=== PATIENT | male | born 1965 ===

== ENCOUNTER 2019-12-11 10:18 | Outpatient (REF) | payer OTHER, SELFPAY | END 2019-12-11 10:19 | disposition home or self-care (01) | LOC: HO.LAB 10:18 | PROVIDERS: Visit Provider Physician Assistant | DX: Z13.89 Encounter for screening for other disorder (principal) ==

== ENCOUNTER 2019-12-14 14:26 | Outpatient (REF) | payer OTHER, SELFPAY | END 2019-12-14 14:27 | disposition home or self-care (01) | LOC: HO.LAB 14:26 | PROVIDERS: Visit Provider Orthopaedic Surgery | DX: Z13.89 Encounter for screening for other disorder (principal) ==

== ENCOUNTER 2019-12-22 05:55 | Inpatient (IN) | payer OTHER, SELFPAY ==
[2019-11-18 10:18] VITALS: BMI 30.7
--- NOTE | 2019-11-18 13:20 | P.CONAN_ITS ---
HPI - Anesthesia Eval Consult details Narrative: Resched to 12/15/19 54yo M for R TKA PCP cleared [facility] Past Medical History Medical History Hx MRSA infection Hx of concussion Hx of hepatitis C Hx of low back pain Hx of migraine headaches Hypertension Osteoarthritis Functional capacity: uses cane/walker Family History Family history of problems with anesthesia: No Surgical History Surgical History H/O arthroscopy of left knee History of Problems with Anesthesia: No Social History Social History Smoking Status: Never smoker Second Hand Smoke Exposure: No Substance Use Type: Former Substance User Narrative Narrative: No recent illness. >4 mets with PT Meds Allergies Allergy/AdvReac Type Severity Reaction Status Date / Time bee pollen [bee stings] Allergy Hives Verified 12/11/19 10:43 Home Medications Medication Instructions Recorded Confirmed Type lisinopril-hydrochlorothiazide 1 tab PO DAILY 11/18/19 11/18/19 History Exam Exam Date and Time: November 18, 2019 1320 Height,Weight and Vital Signs: Pulse Resp BP Pulse Ox 70 16 159/98 H ywkgave=451/97 98 11/18/19 14:04 11/18/19 14:04 11/18/19 14:04 11/18/19 14:04 Height 5 ft 5 in Weight 83.915 kg Pertinent Lab Results Pertinent Lab Results: Laboratory Tests 11/10/19 11/10/19 11:56 11:56 WBC 3.7 L Hgb 14.4 Hct 42.2 Plt Count 244 Sodium 139 Potassium 5.1 D Chloride 104 BUN 19 H Creatinine 0.91 Narrative Narrative: EKG 10/2019: NSR@78, nonspec T wave abn, QTc@462 BP elevated day of PAT. Readings provided tomlatient and he will discuss with PCP ar clearance appt. Airway Mallampati Class: II TM Dist: >3cm Neck ROM: Full Adult Head Mouth w/Numbe Teeth: 1. Chipped Loose/Missing/Broken Teeth: Yes (Chipped) Heart: RRR Lungs: CTAB Assessment and Plan Assessment Anesthesia Assessment: Anesthesia Plan Discussed (Herniated L4,L5. Discussed GA as back up. )
[2019-11-18 14:04] VITALS: BP 159/98; PULSE 70; RESP 16; O2SAT 98; BMI 33.3
[2019-11-19 16:48] LABS: MRSA Nasal PCR NEGATIVE (Negative); SA Nasal PCR NEGATIVE (Negative)
--- NOTE | 2019-12-15 07:28 | PC.NURSE ---
PTS CALLED PT SICK N/V/D DIZZINESS CHILLS OR AND SURGEON AWARE
--- NOTE | 2019-12-21 12:16 | P.CONAN_ITS ---
Documented by User: Nenita Gonsalez 12/21/19 12:19 HPI - Anesthesia Eval Consult details Narrative: Resched from 12/15/19 d/t pt illness 54yo M for R TKA PCP cleared [facility] Past Medical History Medical History Hx MRSA infection Hx of concussion Hx of hepatitis C Hx of low back pain Hx of migraine headaches Hypertension Osteoarthritis Functional capacity: uses cane/walker Surgical History Surgical History H/O arthroscopy of left knee Social History Social History Are you a primary career development counselor to a significant other at home: No Do you presently have visiting nurse or other home services: No Smoking Status: Never smoker Second Hand Smoke Exposure: No Use of substances other than those prescribed or required for medical reasons: No Substance Use Type: Former Substance User Substance Use Type Other:: LAST USED 07/2018 Have you been hit, kicked, punched, or otherwise hurt by someone within the past year? If so, by whom?: No Advance Directives: No Advance Directives Information Provided: No Advance Directives on File: No Recently lost weight without trying: No Meds Allergies Allergy/AdvReac Type Severity Reaction Status Date / Time bee pollen [bee stings] Allergy Hives Verified 12/11/19 10:43 Home Medications Medication Instructions Recorded Confirmed Type lisinopril-hydrochlorothiazide 1 tab PO DAILY 11/18/19 11/18/19 History Exam Exam Date and Time: December 21, 2019 1216 Height,Weight and Vital Signs: Height 5 ft 5 in Weight 90.718 kg Last Vital Signs Pulse 70 11/18/19 14:04 Resp 16 11/18/19 14:04 BP 159/98 H 11/18/19 14:04 Pulse Ox 98 11/18/19 14:04 Pertinent Lab Results Pertinent Lab Results: Laboratory Tests 11/18/19 12/14/19 12:16 14:45 Nasal Screen MRSA (PCR) NEGATIVE Nasal S. aureus Screen NEGATIVE Nasal MRSA/S.aureus Interp SEE NOTE Blood Type A Positive Antibody Screen NEGATIVE Laboratory Tests 11/10/19 11/10/19 11:56 11:56 WBC 3.7 L Hgb 14.4 Hct 42.2 Plt Count 244 Sodium 139 Potassium 5.1 D Chloride 104 BUN 19 H Creatinine 0.91 Narrative Narrative: Narrative: EKG 10/2019: NSR@78, nonspec T wave abn, QTc@462 BP elevated day of PAT. Readings provided to patient and he will discuss with PCP at clearance appt. Airway Mallampati Class: II TM Dist: >3cm Neck ROM: Full Loose/Missing/Broken Teeth: Yes (Chipped) Heart: RRR Lungs: CTAB Assessment and Plan Assessment Anesthesia Assessment: Anesthesia Plan Discussed (Herniated L4,L5. Discussed GA as back up. ) and PAT Visit Documented by User: Casey Chavez MD 12/22/19 09:45 [facility] Past Medical History Medical History Hx MRSA infection Hx of concussion Hx of hepatitis C Hx of low back pain Hx of migraine headaches Hypertension Osteoarthritis Surgical History Surgical History H/O arthroscopy of left knee Social History Social History Are you a primary career development counselor to a significant other at home: No Do you presently have visiting nurse or other home services: No Smoking Status: Never smoker Second Hand Smoke Exposure: No Use of substances other than those prescribed or required for medical reasons: No Substance Use Type: Former Substance User Substance Use Type Other:: LAST USED 07/2018 Have you been hit, kicked, punched, or otherwise hurt by someone within the past year? If so, by whom?: No Advance Directives: No Advance Directives Information Provided: No Advance Directives on File: No Recently lost weight without trying: No Meds Allergies Allergy/AdvReac Type Severity Reaction Status Date / Time bee pollen [bee stings] Allergy Hives Verified 12/11/19 10:43 Home Medications Medication Instructions Recorded Confirmed Type lisinopril-hydrochlorothiazide 1 tab PO DAILY 11/18/19 11/18/19 History Exam Airway Mallampati Class: II TM Dist: >3cm Neck ROM: Full (Missing a couple) Heart: RRR Lungs: CTA BL Assessment and Plan Assessment Anesthesia Assessment: Anesthesia Plan Discussed and Chart Reviewed Final Anesthetic Review NPO: Yes ASA Class: II Final Preanesthetic Review: Meds/Allgs Chart Reviewed and Consent Obtained/Reviewed Patient Risk: Intermediate Procedure Risk: Intermediate Anesthetic Plan Anesthetic Plan: Spinal Disposition: Standard PACU
[2019-12-22] VITALS (18 sets, daily range): BP systolic 144–174; BP diastolic 86–99; PULSE 70–92; RESP 16–20; TEMP 36.1–37.2; O2SAT 95–100
--- NOTE | 2019-12-22 | XR_ITS ---
EXAMINATION: XR KNEE, RIGHT CLINICAL INFORMATION: Status post right total knee arthroplasty. COMPARISON: 07/03/2019 TECHNIQUE: AP and lateral views of the right knee. FINDINGS: Expected postoperative changes status post right total knee arthroplasty with patellar resurfacing seen including a joint effusion, soft tissue gas, and skin neeraj. Hardware is well seated. No evidence of acute complication. XR/XR knee RT 2V IMPRESSION: Expected postoperative appearance status post right total knee arthroplasty.
[2019-12-22 06:43] LABS: COVID-19 Test Negative (Negative)
[2019-12-22] MEDS: Gabapentin 600 MG TABLET PO (08:00)
[2019-12-22] MEDS: Lactated Ringers 1,000 ML 100 ML IVCONT (08:14)
--- NOTE | 2019-12-22 09:26 | MHC.SHP ---
Pre-Procedural Eval Section A The patient is an INPATIENT: No Changes since office visit: Yes Patient answered all questions; No Cold of Flu in the past 2 weeks, No New Medical Problems and No Changes in Medication The History & Physical has been completed within 30 days and I have reviewed it.: Yes Section B Chief Complaint: orthopedic surgery TKA Allergies: Allergies Allergy/AdvReac Type Severity Reaction Status Date / Time bee pollen [bee stings] Allergy Hives Verified 12/11/19 10:43 Plan Patient has been examined and remains a candidate for the planned procedure
--- NOTE | 2019-12-22 09:40 | PC.NURSE ---
Pt was rescheduled from last week. Anesthesia consent dated 11/18/19. Pt medicated with versed for nerve block by Dr. Chavez. global supply chain director Manpreet informed of above. Pt ok to sign new consent dated today as he previously consented for planned anesthesia procedure.
--- NOTE | 2019-12-22 11:36 | PM.OP ---
Brief Operative Note Date of procedure: 12/22/19 Pre-op diagnosis: right knee OA Post-op diagnosis: same Procedure: right TKA Implants: allyssa triathalon 04/14/09/32a Surgeon: Ulises Pathak MD Anesthesia: GETA, regional and local General Practitioner: Michelle Moyer Estimated blood loss (mL): 150 Tourniquet time (min): 45 IV fluids (mL): 1,000 Pathology: other Condition: stable Disposition: PACU
[2019-12-22] MEDS: oxyCODONE HCl Immed Release 5 MG TABLET 10 MG PO (12:10)
[2019-12-22] MEDS: HYDROmorphone HCl 0.5 MG/0.5 ML SYRINGE IVPUSH ×3 (12:18→13:21)
--- NOTE | 2019-12-22 14:07 | PC.NURSE ---
Pt tolerated straight cath well.
[2019-12-22] MEDS: Dextrose 5 % and 0.9 % NaCl 1,000 ML 80 ML IVCONT (15:31)
[2019-12-22] MEDS: 0.9 % Sodium Chloride Flush 3 ML SYRINGE IVFLUSH (15:32)
[2019-12-22] MEDS: oxyCODONE HCl Immed Release 5 MG TABLET PO (16:56)
--- NOTE | 2019-12-22 18:34 | PM.EVENT ---
Event Note Date of Service: 12/22/19 Event Note: addendum to consultation by RAYMOND Berry I interviewed and examined the patient. I discussed their presentation and management with the mid-level provider. I reviewed the history and physical and agree with the documentation, with the following additions and corrections: 54yo s/p R TKA for OA, med consultation for chronic medical conditions plan to continue home dose of lisionpril/HCTZ for HTN pain control + VTE ppx as per Ortho
[2019-12-22] MEDS: HYDROmorphone HCl 0.5 MG/0.5 ML SYRINGE 0.25 MG IVPUSH ×2 (18:42→22:55)
--- NOTE | 2019-12-22 18:47 | PM.IMCN ---
History of Present Illness Data of Consult Service Date: 12/22/19 <Marilee Berry NP - Last Filed: 12/22/19 18:52> Requesting physician: Naa Sogn <Marilee Berry NP - Last Filed: 12/22/19 18:52> Primary Care Provider: Unknown Physician <Marilee Berry NP - Last Filed: 12/22/19 18:52> HPI Reason for consult: Medical management <Marilee Berry NP - Last Filed: 12/22/19 18:52> 54-year-old man admitted by Orthopedic surgery and is status post right total knee arthroplasty. Surgery was unremarkable. Patient is having a moderate amount pain but is stable. He has been able to eat and drink without any nausea or vomiting. His vital signs stable. <Marilee Berry NP - Last Filed: 12/22/19 18:52> Review of Systems Review of Systems: Denies any recent fever chills or decrease in appetite respiratory denies any shortness of breath coverage production cardiovascular is adjustment of any PND or edema gastrointestinal denies any dysphagia abdominal pain nausea vomiting or diarrhea genitourinary denies any dysuria frequency or hematuria musculoskeletal knee pain neuropsych denies any weakness or seizures all other systems reviewed are negative <Marilee Berry NP - Last Filed: 12/22/19 18:52> [facility] Medical History: Medical History (Updated 12/23/19 @ 13:31 by Blayne Pride MD) Hx MRSA infection Hx of concussion Hx of hepatitis C Hx of low back pain Hx of migraine headaches Hypertension Osteoarthritis <Marilee Berry NP - Last Filed: 12/22/19 18:52> Functional capacity: uses cane/walker <Marilee Berry NP - Last Filed: 12/22/19 18:52> Surgical History: Surgical History H/O arthroscopy of left knee <Marilee Berry NP - Last Filed: 12/22/19 18:52> Social History: Social History Are you a primary farm or ranch animal caretaker to a significant other at home: No Do you presently have visiting nurse or other home services: No Smoking Status: Never smoker Second Hand Smoke Exposure: No Use of substances other than those prescribed or required for medical reasons: No Substance Use Type: Former Substance User Substance Use Type Other:: LAST USED 07/2018 Currently Displaying Signs/Symptoms of Drug Intoxication Withdrawal: No Have you been hit, kicked, punched, or otherwise hurt by someone within the past year? If so, by whom?: No Advance Directives: No Advance Directives Information Provided: No Advance Directives on File: No Do you have thoughts of harming others: None Do you have a plan to hurt others: No Plan Recently lost weight without trying: No service: No Current occupational status: employed <Marilee Berry NP - Last Filed: 12/22/19 18:52> Meds Allergies/Adverse reactions: Allergies Allergy/AdvReac Type Severity Reaction Status Date / Time bee pollen [bee stings] Allergy Hives Verified 12/11/19 10:43 <Marilee Berry NP - Last Filed: 12/22/19 18:52> Home medications: Home Medications Medication Instructions Recorded Confirmed Type lisinopril-hydrochlorothiazide 1 tab PO DAILY 11/18/19 11/18/19 History <Marilee Berry NP - Last Filed: 12/22/19 18:52> Physical Exam Vital Signs and Narrative: Vital Signs: Last Vital Signs Temp 97.5 F 12/22/19 16:12 Pulse 74 12/22/19 16:12 Resp 20 12/22/19 18:42 BP 164/95 H 12/22/19 16:12 Pulse Ox 100 12/22/19 16:12 Body Mass Index 33.3 <Marilee Berry NP - Last Filed: 12/22/19 18:52> Results Labs CBC and Chem 7: : 12/23/19 10:01 12/23/19 10:01 <Marilee Berry NP - Last Filed: 12/22/19 18:52> Labs: Laboratory Results - last 24 hr 12/22/19 05:51 COVID-19 ([facility]) Negative COVID-19 Clin Com See Note <Marilee Berry NP - Last Filed: 12/22/19 18:52> Imaging Radiologist's Impressions: Impressions Knee X-Ray 12/22/19 00:00 IMPRESSION: Expected postoperative appearance status post right total knee arthroplasty. <Marilee Berry NP - Last Filed: 12/22/19 18:52> Assessment and Plan (1) Osteoarthritis of right knee: Qualifiers: Osteoarthritis type: primary Qualified Code(s): M17.11 - Unilateral primary osteoarthritis, right knee <Marilee Berry NP - Last Filed: 12/22/19 18:52> Status: Acute <Marilee Berry NP - Last Filed: 12/22/19 18:52> 54-year-old man status post right total knee arthroplasty. Right total knee arthroplasty. Management as per team. Pain management. Hypertension. Stable blood pressure some elevated readings. Will continue dose of lisinopril / hydrochlorothiazide. DVT prophylaxis with mechanical compression boots as per orthopedic surgical team. Case discussed with Dr. Pride Full code <Marilee Berry NP - Last Filed: 12/22/19 18:52>
[2019-12-22] MEDS: Celecoxib 200 MG CAPSULE PO (21:20)
[2019-12-22] MEDS: oxyCODONE HCl ER 10 MG TAB.ER.12H PO (21:20)
[2019-12-22] MEDS: Acetaminophen 325 MG TABLET 650 MG PO (21:21)
[2019-12-23] MEDS: 0.9 % Sodium Chloride Flush 3 ML SYRINGE IVFLUSH (00:07)
[2019-12-23] MEDS: oxyCODONE HCl Immed Release 5 MG TABLET PO (02:05)
[2019-12-23 02:51] VITALS: RESP 20
[2019-12-23] MEDS: HYDROmorphone HCl 0.5 MG/0.5 ML SYRINGE 0.25 MG IVPUSH ×4 (02:51→13:46)
[2019-12-23 04:00] VITALS: BP 142/89; PULSE 89; RESP 20; TEMP 36.7; O2SAT 99
[2019-12-23] MEDS: Dextrose 5 % and 0.9 % NaCl 1,000 ML 80 ML IVCONT (05:21)
[2019-12-23] MEDS: Ketorolac Tromethamine 15 MG/ML VIAL IV ×2 (06:40→13:47)
[2019-12-23 07:19] VITALS: BP 145/81; PULSE 79; RESP 18; TEMP 35.9; O2SAT 97
--- NOTE | 2019-12-23 07:27 | PC.NURSE ---
patient ia a 54 year old male, pod#1 right total knee., aquacel dsg and cinthya wrap c-d-i. cects worn bilat and voiding to bedside urinal without difficulty. overnight issue, however, was pain management. patient medicated as ordered, but only able to rest in short naps..approx., 0515, patient restless and in pain. patient stated that he was leaving and wanted to call his to come get him. patient agreeable to stay through conversation and encouragement to update MD in his behalf. nursing melter supervisor open hearth furnace also came to unit to talk to him..pt btb and ortho pa and MD texted to see if they had any suggestions. md ordered an additional dose of ivp Dilaudid and that dose was explained and given at 0605.patient stated no relief and again stated was leaving, wanted his iv out or he would pull it out, standing at bed side asking for his clothes. not as easy this time as he was more discouraged that extra medicine did not lower his pain. nursing melter supervisor open hearth furnace and security helped manage and control the situation, and ortho Pa had ordered Toradol, and pt finally agreeable to try that and wait in hospital to talk with ortho team. Nursing melter supervisor open hearth furnace placed a call to his , gave her an update, and she said she would call and then visit him. Report given to day RN for close monitoring and follow up Patient noted in bed and resting at 0700
--- NOTE | 2019-12-23 07:53 | P.PNOP_ITS ---
Subjective Subjective Interval history: POD1 s/p RTKA pt. having difficulty with pain management. Did not work with [employer]. yesterday. Physical Exam Vital Signs: Vital Signs: Last Vital Signs Temp 96.7 F L 12/23/19 07:19 Pulse 79 12/23/19 07:19 Resp 18 12/23/19 07:19 BP 145/81 H 12/23/19 07:19 Pulse Ox 97 12/23/19 07:19 Body Mass Index 33.3 Const: General: cooperative, healthy appearing and no acute distress Resp: Effort & Inspection: normal respiratory effort and able to speak in complete sentences Cardio: Rate: regular rate Peripheral pulses: Peripheral pulses 2+ throughout GI: Inspection: Yes normal to inspection Palpation (GI): Soft to palpation Skin: General skin exam: no rashes or lesions noted Extrem: Other: Dressing clean, dry, and intact. No drainage, ecchymosis, or redness. NVI. Progress Note: A&P Assessment and plan (1) Status post right knee replacement: Status: Acute Assessment and Plan: Continue pain mgmnt Begin ASA for dvt ppx today begin PT for RT TKA Dispo planning-Pending PT eval, pain mgmnt Fall Risk Details Current Medications: Current Medications Generic Name Dose Route Start Last Admin Trade Name Freq PRN Reason Stop Dose Admin Acetaminophen 650 mg 12/22/19 14:46 12/22/19 21:21 Acetaminophen 325 Mg Tablet PO 650 mg Q6H PRN Administration Pain, Mild (Pain Scale 1-3) Celecoxib 200 mg 12/22/19 21:00 12/22/19 21:20 Celecoxib 200 Mg Capsule PO 200 mg BID CRISTA Administration Hydromorphone HCl 0.25 mg 12/22/19 14:46 12/23/19 02:51 Hydromorphone Hcl 0.5 Mg/0.5 Ml Syringe IVPUSH 0.25 mg Q4H PRN Administration Pain, Severe (Pain Scale 7-10) Dextrose/Sodium Chloride 1,000 mls @ 80 mls/hr 12/22/19 14:46 12/23/19 05:21 D5ns IVCONT 80 mls/hr .[id number] CRISTA Administration Ketorolac Tromethamine 15 mg 12/23/19 07:00 12/23/19 06:40 Ketorolac Tromethamine 15 Mg/Ml Vial IV 15 mg Q6H CRISTA Administration Naloxone HCl 0.2 mg 12/22/19 14:46 Naloxone Hcl 0.4 Mg/Ml Vial IVPUSH Q2M PRN Excessive sedation or RR < 8 Ondansetron HCl 4 mg 12/22/19 14:46 Ondansetron Hcl 4 Mg/2 Ml Vial IVPUSH Q8H PRN Nausea and Vomiting Oxycodone HCl 10 mg 12/22/19 21:00 12/22/19 21:20 Oxycodone Hcl Er 10 Mg Tab.Er.12h PO 10 mg BID CRISTA Administration Oxycodone HCl 10 mg 12/23/19 06:10 Oxycodone Hcl Immed Release 5 Mg Tablet PO Q4H PRN Pain, Moderate (Pain Scale 4-6 Senna 17.2 mg 12/22/19 14:46 Sennosides 8.6 Mg Tablet PO BEDTIME PRN Constipation Sodium Chloride 3 ml 12/22/19 16:00 12/23/19 00:07 0.9 % Sodium Chloride Flush 3 Ml Syringe IVFLUSH 3 ml QSHIFT CRISTA Administration Time Spent With Patient Time: Total time spent is greater than 50% in coordination of care (as documented) at patient's floor/unit and/or counseling patient: Time with patient: 15 - 24 minutes
[2019-12-23] MEDS: oxyCODONE HCl ER 10 MG TAB.ER.12H PO (08:09)
[2019-12-23] MEDS: Celecoxib 200 MG CAPSULE PO (08:09)
[2019-12-23 09:46] VITALS: BP 145/81; PULSE 79; O2SAT 97
--- NOTE | 2019-12-23 09:48 | HO.POSTANES ---
Post Anesthesia Evaluation Post Anesthesia Evaluation Vital Signs: Vital Signs Temp Pulse Resp BP Pulse Ox 12/23/19 07:19 96.7 F L 79 18 145/81 H 97 12/23/19 04:00 98.1 F 89 20 142/89 H 99 12/23/19 02:51 20 12/22/19 23:47 96.9 F 76 16 145/86 H 95 Anesthesia: General Mental Status: Awake Pain Control: Satisfactory Nausea/Vomiting: None Hydration: Adequate Anesthesia-Related Issues: No Anes. Related Issues
[2019-12-23 10:27] LABS: Basophils Percent Auto 0.2 % (0-2); Hematocrit 33.3 % (42-52); Hemoglobin 11.6 g/dl (14.0-18.0); Imm Gran Abs Auto 0.01 X10*3/uL (0.00-0.03); Imm Gran Pct Auto 0.2 % (0.0-0.4); Lymphocytes Absolute Auto 0.5 X10*3/uL (1.2-4.9); MANUAL DIFF FLAG SCAN; Mean Corpuscular HGB Conc 34.8 g/dl (31.0-36.0); Mean Corpuscular Hemoglobin 30.3 pg (27.0-33.0); Mean Corpuscular Volume 86.9 fL (80-98); Mean Platelet Volume 8.7 fL (9.4-12.4); Monocytes Absolute Auto 0.5 X10*3/uL (0.1-1.2); Monocytes Percent Auto 8.6 % (2-11); Neutrophils Absolute Auto 5.2 X10*3/uL (2.0-8.3); Platelet Count 198 X10*3/uL (160-400); Red Blood Count 3.83 X10*6/uL (4.60-5.80); Red Cell Distribution Width 12.3 % (11.0-16.0); SCAN SMEAR FLAG 1; White Blood Count 6.3 X10*3/uL (4.8-10.8)
[2019-12-23] MEDS: lisinopriL 20 MG TABLET PO (10:28)
[2019-12-23] MEDS: hydroCHLOROthiazide 12.5 MG TABLET PO (10:28)
[2019-12-23] MEDS: oxyCODONE HCl Immed Release 5 MG TABLET 10 MG PO (10:29)
[2019-12-23] MEDS: Aspirin 325 MG TABLET PO (10:29)
[2019-12-23] MEDS: Acetaminophen 325 MG TABLET 650 MG PO (10:30)
[2019-12-23 10:59] LABS: Anion Gap 10 (12-20); Blood Urea Nitrogen 10 mg/dL (9-16); Calcium 8.5 mg/dL (8.4-10.2); Carbon Dioxide 25 mmol/L (22-29); Chloride 103 mmol/L (96-108); Creatinine Clr Calc Pharmacy 117.9; Estimated Glomerular Filt Rate > 60; Glucose Fasting 159 mg/dL (60-99); Potassium 3.4 mmol/l (3.3-5.1); Sodium 135 mmol/L (135-145)
--- NOTE | 2019-12-23 11:57 | MHC.CM.PN ---
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 he is accetping of having th evna for nursing and [facility] , iniated referral to them discharge plan home with his [facility] physical theapry called to [facility] . [facility] office will call for follow up [place] [facility] [place] [facility] [place] on [address] post vna discharge . orthopedic aurgical follow up post discharge instructions transportation family
[2019-12-23 12:00] VITALS: BP 165/80; PULSE 73; RESP 18; TEMP 36.1; O2SAT 99
[2019-12-23 12:25] LABS: SLIDE REVIEW VERIFIED
[2019-12-23 13:17] VITALS: BP 165/80; PULSE 73; O2SAT 99
--- NOTE | 2019-12-23 13:27 | MHC.CM.PN ---
NURSE CARDIOVASCULAR RADIOLOGIC TECHNOLOGIST NOTE SPOKE WITH PATIENT ANDS STAFF NURSE AND PHYSICAL THEAPRIST PATIENT IS DOING WELLL AND CAN BE DISCHARGED HOME PEDRO PABLO , THE ORTHOPEDIC SURGICAL PA WROTE ORDER FOR THE VNA FOR HOME PHYSICAL THEAPRY SPOKE WITH [facility] AND CONFIRMED HOME PHYSICAL THEPARY TO START TOMORROW TRANSPORTATION PATIENTS ORTHOPEDIC FOLLOW UP PER DISCHARGE [facility]STRUCTIONS [facility]
--- NOTE | 2019-12-23 13:29 | HO.PM.IMPN ---
Subjective Subjective Date of Service: 12/23/19 Interval History: C/o postop knee pain No chest pain or dyspnea. Physical Exam Vital Signs: Vital Signs: Last Vital Signs Temp 97.0 F 12/23/19 12:00 Pulse 73 12/23/19 13:17 Resp 18 12/23/19 12:00 BP 165/80 H 12/23/19 13:17 Pulse Ox 99 12/23/19 13:17 Body Mass Index 33.3 gen: NAD lungs: CTAB CV: RRR no m/r/g abd: soft/NT ext: RLE postop swelling neuro: no focal findings Objective Data Current Medications Generic Name Dose Route Start Last Admin Trade Name Freq PRN Reason Stop Dose Admin Acetaminophen 650 mg 12/22/19 14:46 12/23/19 10:30 Acetaminophen 325 Mg Tablet PO 650 mg Q6H PRN Administration Pain, Mild (Pain Scale 1-3) Aspirin 325 mg 12/23/19 10:00 12/23/19 10:29 Aspirin 325 Mg Tablet PO 325 mg BID CRISTA Administration Celecoxib 200 mg 12/22/19 21:00 12/23/19 08:09 Celecoxib 200 Mg Capsule PO 200 mg BID CRITSA Administration Hydrochlorothiazide 12.5 mg 12/23/19 09:00 12/23/19 10:28 Hydrochlorothiazide 12.5 Mg Tablet PO 12.5 mg DAILY CRISTA Administration Protocol Hydromorphone HCl 0.25 mg 12/22/19 14:46 12/23/19 08:08 Hydromorphone Hcl 0.5 Mg/0.5 Ml Syringe IVPUSH 0.25 mg Q4H PRN Administration Pain, Severe (Pain Scale 7-10) Dextrose/Sodium Chloride 1,000 mls @ 80 mls/hr 12/22/19 14:46 12/23/19 05:21 D5ns IVCONT 80 mls/hr .[id number] CRISTA Administration Ketorolac Tromethamine 15 mg 12/23/19 07:00 12/23/19 06:40 Ketorolac Tromethamine 15 Mg/Ml Vial IV 15 mg Q6H CRISTA Administration Lisinopril 20 mg 12/23/19 09:00 12/23/19 10:28 Lisinopril 20 Mg Tablet PO 20 mg DAILY CRISTA Administration Protocol Naloxone HCl 0.2 mg 12/22/19 14:46 Naloxone Hcl 0.4 Mg/Ml Vial IVPUSH Q2M PRN Excessive sedation or RR < 8 Ondansetron HCl 4 mg 12/22/19 14:46 Ondansetron Hcl 4 Mg/2 Ml Vial IVPUSH Q8H PRN Nausea and Vomiting Oxycodone HCl 10 mg 12/22/19 21:00 12/23/19 08:09 Oxycodone Hcl Er 10 Mg Tab.Er.12h PO 10 mg BID CRISTA Administration Oxycodone HCl 10 mg 12/23/19 06:10 12/23/19 10:29 Oxycodone Hcl Immed Release 5 Mg Tablet PO 10 mg Q4H PRN Administration Pain, Moderate (Pain Scale 4-6 Senna 17.2 mg 12/22/19 14:46 Sennosides 8.6 Mg Tablet PO BEDTIME PRN Constipation Sodium Chloride 3 ml 12/22/19 16:00 12/23/19 08:09 0.9 % Sodium Chloride Flush 3 Ml Syringe IVFLUSH Not Given QSHIFT [facility] Labs CBC & Chem 7: 12/23/19 10:01 12/23/19 10:01 Assessment and Plan (1) Osteoarthritis, knee: Status: Acute (2) Hypertension: Status: Acute Assessment and Plan: 54yo M POD#1 R TKA for OA medicine consultation for management of comorbid conditions # HTN - resume home lisinopril + HCTZ # postop TKA - ASA for VTE ppx, analgesia as per Ortho team # postop anemia - recheck CBC in am
--- NOTE | 2019-12-28 17:14 | OP_ITS ---
SURGEON: Ulises Pathak MD INDICATIONS: This is a 54-year-old gentleman with a right knee osteoarthritis, consented to undergo a right knee arthroplasty. PREOPERATIVE DIAGNOSIS: Right knee osteoarthritis. POSTOPERATIVE DIAGNOSIS: Right knee osteoarthritis. PROCEDURE PERFORMED: Right knee arthroplasty. ESTIMATED BLOOD LOSS: 150 mL. COMPLICATIONS: None known. ANESTHESIA: General, regional, and local. ASSISTANTS: SPECIMENS: IMPLANTS: Isac Triathlon cruciate-retaining press-fit 3/4/10CR/32A FLUIDS: 1 L. TOURNIQUET TIME: 45 minutes. PROCEDURE IN DETAIL: The patient was brought to the operating room, placed supine on the operative table, and prepped and draped in standard sterile fashion. Time-out was called to identify proper site, proper procedure, and proper surgeon. IV antibiotics per weight were administered. I began by exsanguinating the limb and insufflating tourniquet to 300 mmHg. I then made a standard midline incision down the retinaculum and performed a medial parapatellar arthrotomy. He had eburnation of the lateral compartment most of the femoral condyle and a very tight lateral retinaculum. I resected the fat pad, performed a medial peel, used Doyle's line to drill my intramedullary femoral guide, made my distal femoral cut in 5 degrees of valgus. I then sized a size 3 femur, made my anterior, posterior, and chamfer cuts protecting the notch and soft tissues at all times. I then turned my attention to the tibia, where I took the 9 mm off the medial side in line with the tibial crest. The menisci were removed and posterior soft tissues were protected at all times. Extension block was used to confirm adequacy of tibial resection. Once I was happy with that, I trialed a size 4 tibia and was happy with the range of motion and stability. The undersurface of the patella was then resurfaced, and an asymmetric 32 patella was placed. The knee was taken through range of motion again and I was happy with the tracking and stability and range. I drilled my lug holes and prepared my tibial canal and then removed all instrumentation. I irrigated copiously and then press-fit and the tibia, femur, and patella in standard fashion. I then trialed a 9 and 11. I was happiest with 10. The 10CR was placed. A 3-minute iodine soak with local tranexamic acid was applied. Layered closure was performed with neeraj on the skin. The patient was placed in sterile dressing, extubated, brought to recovery room in stable condition. There were no known complications. PASTE MIXING SUPERVISOR: PASHA Washington. MD KAMAR Gimenez/DMITRY / [id number]
== END 2019-12-23 14:17 | disposition home health service (06) | DRG 326 ==
LOC: HO.SSSA 07:14 → HO.S3 12:02
PROVIDERS: Physician Assistant; Admitting Provider Orthopaedic Surgery; Visit Provider Orthopaedic Surgery
PROC: 0SRC0JA Replacement of Right Knee Joint with Synthetic Substitute, Uncemented, Open Approach (ICD-10-PCS; CPT 27447; principal; 2019-12-22 09:30)
DX: M17.11 Unilateral primary osteoarthritis, right knee (principal); Z20.828 Contact with and (suspected) exposure to other viral communicable diseases; Z79.899 Other long term (current) drug therapy
CPT/HCPCS: 36415; 73560; 80048; 85025; 86850; 86900; 86901; 87635; 87640; 87641; 88305; 88311; 97110; 97116; 97162; C1776; J0131; J1170; J1885; J2250; J2405; J3370

== ENCOUNTER 2020-01-02 16:24 | Emergency (ER) | payer OTHER, SELFPAY ==
[2020-01-02 17:57] VITALS: BP 142/89; PULSE 84; RESP 16; TEMP 36.3; O2SAT 100; BMI 34.1
--- NOTE | 2020-01-02 18:36 | ED_ITS ---
HPI - Wound/Laceration General Chief Complaint: Extremity Injury, Lower Stated Complaint: dressing change Time Seen by Provider: 01/02/20 18:36 Source: patient Mode of arrival: ambulatory Limitations: no limitations History of Present Illness HPI narrative: 54-year-old male status post right total knee replacement on 21 of December has a dressing in place states he would like to get this change no related complaints just states that he was ?passing through?. Onset (ago): day(s) Related Data Home Medications Medication Instructions Recorded Confirmed lisinopril-hydrochlorothiazide 1 tab PO DAILY 11/18/19 11/18/19 Previous Rx's Medication Instructions Recorded acetaminophen 650 mg PO Q6H PRN 30 Days #240 tab 12/23/19 aspirin 325 mg PO BID 14 Days #28 tab 12/23/19 oxycodone 10 mg PO Q4H PRN 7 Days #42 tab 12/23/19 sennosides [Senna Lax] 17.2 mg PO BEDTIME PRN 30 Days #60 12/23/19 tab Allergies Allergy/AdvReac Type Severity Reaction Status Date / Time bee pollen [bee stings] Allergy Hives Verified 12/11/19 10:43 Review of Systems Review of Systems: Constitutional: No Weight loss, No Fever, No Chills, No Night Sweats, No Fatigue, No Malaise ENT/Mouth: No Hearing loss, No Ear Pain, No Nasal Congestion, No Sinus Pain, No Hoarseness, No sore throat, No Rhinorrhea, No Swallowing Difficulty Eyes: No Eye Pain, No Swelling, No Redness, No Foreign Body, No Discharge, No Vision Changes Cardiovascular: No Chest Pain, No SOB, No Dyspnea on Exertion, No Orthopnea, No Edema, No Palpitations Respiratory: No Cough, No Sputum, No Wheezing, No Smoke Exposure, No Dyspnea Gastrointestinal: No Nausea, No Vomiting, No Diarrhea, No Constipation, No abdominal Pain, No Hematochezia, No Melena Genitourinary: no irregular bleeding, No Dysuria, No Urinary Frequency, No Hematuria, No Urinary Incontinence, No Urgency, No Flank Pain, No Urinary Flow Changes, No Hesitancy Musculoskeletal: No joint pain, No Myalgias, No Joint Swelling Skin: No Skin Lesions, No rash Neuro: No Weakness, No Numbness, No Paresthesias, No Loss of Consciousness, No Dizziness, No Headache Psych: No Anxiety/Panic, No Depression, No SI/HI/AH/VH, No Social Issues Heme/Lymph: No Bruising, No Bleeding,No Lymphadenopathy Endocrine: No Polyuria, No Polydipsia, No Temperature Intolerance Yes all other systems are reviewed and are negative FORMERLY [facility], [facility] Past Medical History Attestation statement: The following information was validated with the patient. Medical History (Updated 12/31/19 @ 00:01 by Mahesh Burns) Hx MRSA infection Hx of concussion Hx of hepatitis C Hx of low back pain Hx of migraine headaches Hypertension Osteoarthritis Osteoarthritis of right knee Osteoarthritis, knee Surgical History (Updated 01/02/20 @ 18:37 by Prem De La Garza NP) H/O arthroscopy of left knee Social History Social History Alcohol intake: never Smoking Status: Never smoker Smoked in Last 30 Days: No Second Hand Smoke Exposure: No Use of substances other than those prescribed or required for medical reasons: No Substance Use Type: Former Substance User Advance Directives: No Advance Directives Information Provided: Yes service: No Current occupational status: employed Physical Exam Vital Signs: Vital Signs: Last Vital Signs Temp 97.4 F 01/02/20 17:57 Pulse 84 01/02/20 17:57 Resp 16 01/02/20 17:57 BP 142/89 H 01/02/20 17:57 Pulse Ox 100 01/02/20 17:57 Body Mass Index 34.1 Reviewed Const: General: cooperative and healthy appearing; No acute distress or intoxicated appearing Nutritional Appearance: average body habitus O rientation/consciousness: patient oriented x3 Chest: Chest palpation & inspection: normal inspection of the chest Resp: Effort & Inspection: normal respiratory effort Cardio: Jugular venous distension: no JVD GI: Inspection: Yes normal to inspection Percussion: Yes normal to percussion Auscultation: normal bowel sounds : General: Yes no CVA tenderness Back/Spine/Pelvis: Back: no CVA tenderness Skin: General skin exam: no rashes or lesions noted Neuro: General: patient oriented x3 Extrem: Other: Right lower extremity anterior knee area there is a clean surg ical dressing in place. No tender palpation no discharge no erythema. No swelling. No warmness over the joint. Negative Homans sign. General: Yes normal to inspection Course Course Course Narrative: Case discussed with Dr. Pathak on-call advised to not touch the surgical dressing to leave in place and has an appointment this week in office will change office. Findings reviewed with patient and agreeable. Discharge Plan Discharge Clinical Impression: Status post right knee replacement Patient Disposition: Home, Self-Care Instructions: Knee Replacement (DC) Additional Instructions: Leave the dressing in place until you follow-up with orthopedics this upcoming week Return if any swelling, redness, discharge. Follow-up care instructions reviewed with orthopedic doctor if any concerns he can call the office or return to emergency room Thank you Prescriptions: No Action lisinopril-hydrochlorothiazide 20-12.5 mg tablet 1 tab PO DAILY RF: 0 acetaminophen 325 mg Tablet 650 mg PO Q6H PRN (Reason: Pain, Mild (Pain Scale 1-3)) 30 Days Qty: 240 RF: 0 aspirin 325 mg Tablet 325 mg PO BID 14 Days Qty: 28 RF: 0 oxycodone 10 mg tablet 10 mg PO Q4H PRN (Reason: Pain, Moderate (Pain Scale 4-6) 7 Days Qty: 42 RF: 0 sennosides [Senna Lax] 8.6 mg Tablet 17.2 mg PO BEDTIME PRN (Reason: Constipation) 30 Days Qty: 60 RF: 0 Referrals: Ulises Pathak MD [Physician] - 2 days
== END 2020-01-02 18:42 | disposition home or self-care (01) ==
PROVIDERS: Emergency Provider Internal Medicine
DX: Z98.1 Arthrodesis status (principal); T84.84XA Pain due to internal orthopedic prosthetic devices, implants and grafts, initial encounter; Y79.2 Prosthetic and other implants, materials and accessory orthopedic devices associated with adverse incidents; Y92.9 Unspecified place or not applicable
CPT/HCPCS: 99283; 99284

== ENCOUNTER → 2020-01-06 13:47 | Outpatient (BNVA) | payer OTHER, SELFPAY | PROVIDERS: Visit Provider Physician Assistant | DX: Z96.651 Presence of right artificial knee joint (principal) | CPT/HCPCS: 99212 ==

== ENCOUNTER 2020-01-26 16:55 | Outpatient (REF) | payer OTHER, SELFPAY | END 2020-01-26 16:56 | disposition home or self-care (01) | LOC: HO.LAB 16:55 | PROVIDERS: Visit Provider Internal Medicine | DX: Z20.828 Contact with and (suspected) exposure to other viral communicable diseases (principal) | CPT/HCPCS: C9803; U0003 ==

== ENCOUNTER → 2020-02-15 09:39 | Outpatient (BNVA) | payer OTHER, SELFPAY | PROVIDERS: Visit Provider Orthopaedic Surgery | DX: Z47.1 Aftercare following joint replacement surgery (principal); Z96.651 Presence of right artificial knee joint | CPT/HCPCS: 99212 ==

== ENCOUNTER → 2020-04-04 13:07 | Outpatient (BNVA) | payer OTHER, SELFPAY | PROVIDERS: Visit Provider Orthopaedic Surgery | DX: Z96.651 Presence of right artificial knee joint (principal) | CPT/HCPCS: 99212 ==

== ENCOUNTER 2020-05-03 14:00 | Outpatient (RCR) | payer OTHER, SELFPAY ==
--- NOTE | 2020-02-03 15:08 | MHC.PT.EP ---
[facility] [place] Office [place] Office [place] Office [address] Hiral Connor [address] [phone] F: [phone] F: [phone] F: [phone] F: [phone] Physical Therapy Plan of Care Date of Evaluation: 02/02/20 Date of Surgery: 12/22/2019 Diagnosis: presence of right artificial knee joint Assessment: pt presents w/ significant weakness of R LE and poor mobility of R knee. pt will need significant motivation and cueing to push his ROM and regain strength. pt presents to physical therapy with pain, decreased range of motion, decreased strength, impaired functional mobility, impaired postural awareness, and gait deviations. pt is a good candidate for skilled PT due to age, potential remediation of impairments, typical disease/condition progression and prognosis, comorbidities, and motivation. pt would benefit from tailored strengthening and stretching exercise program, functional training, gait training, postural re-training, neuromuscular re-education, modalities as needed for pain, equipment safety demonstration. Frequency and Duration: The patient will be seen 2x/wk for 8 wks Short Term Goals: pt will be I w/ HEP to promote self-management of condition. pt will achieve 0 deg EXT to normalize gait pattern on even ground. pt will achieve 90 deg knee FLEX to assist in stair navigation w/ LRAD. Color Specialist Goals: pt will report statistically significant improvement in self-reported outcome measure, LEFI, to promote return to PLOF. pt will improve R knee ext strength by 2 MMT grade to facilitate ease in STS transfers w/ no UE assist. Treatment Plan: Modalities to reduce pain, spasms and effusion. Manual therapy to restore motion and function. Therapeutic exercise to improve strength and flexibility. Neuromuscular re-education for posture and balance. Therapeutic activities to return to functional activities of daily living. Electronically signed by: Mercedes Bailey PT, DPT Please sign and return to therapist. Thank you for your referral.
--- NOTE | 2020-05-17 15:33 | MHC.PT.DC ---
[facility] [place] Office [place] Office [place] Office [address] Hiral Connor [address] [phone] F: [phone] F: [phone] F: [phone] F: [phone] Physical Therapy Discharge Report Diagnosis: presence of right artificial knee joint Date of Surgery: 12/22/2019 Date of Evaluation: 02/02/20 Date of Discharge: 05/17/20 Treatments to Date: 14 Cancellations to Date: 9 No Shows to Date: 4 Discharge Status: Visit Non-compliance Discharge Summary: The patient has had poor attendance. He has not shown for his past three consecutive visits. Due to visit non-compliance he is being discharged from this physical therapy plan of care at this time. Electronically signed by: Mercedes Bailey PT, DPT Please sign and return to therapist. Thank you for your referral.
== END 2020-05-17 15:33 | disposition other institution (70) ==
LOC: HO.PT 14:00
PROVIDERS: Visit Provider Physician Assistant
DX: Z47.1 Aftercare following joint replacement surgery (principal); Z96.651 Presence of right artificial knee joint
CPT/HCPCS: 97110; 97161; 97530

== ENCOUNTER 2020-07-01 08:53 | Outpatient (REF) | payer OTHER, SELFPAY ==
--- NOTE | ~2020-07-01 | XR_ITS ---
EXAMINATION: KNEE X-RAY CLINICAL INFORMATION: Pain COMPARISON: Previous x-ray December 2019 TECHNIQUE: Standing AP view of both knees and lateral and sunrise view of the right kidney FINDINGS: Right knee: There is a 3 component right knee replacement in satisfactory position. Bone alignment is normal. No fracture or dislocation is seen. There is soft tissue swelling over the knee. There is a joint effusion. Standing AP view of the left knee is unremarkable. XR/XR knee RT 2V IMPRESSION: Satisfactory appearance of right knee replacement. Joint effusion and soft tissue swelling.
--- NOTE | ~2020-07-01 | XR_ITS ---
EXAMINATION: KNEE X-RAY CLINICAL INFORMATION: Pain COMPARISON: Previous x-ray December 2019 TECHNIQUE: Standing AP view of both knees and lateral and sunrise view of the right kidney FINDINGS: Right knee: There is a 3 component right knee replacement in satisfactory position. Bone alignment is normal. No fracture or dislocation is seen. There is soft tissue swelling over the knee. There is a joint effusion. Standing AP view of the left knee is unremarkable. XR/XR knee standing BI IMPRESSION: Satisfactory appearance of right knee replacement. Joint effusion and soft tissue swelling.
== END 2020-07-01 08:54 | disposition home or self-care (01) ==
LOC: HO.HOSX 08:53
PROVIDERS: Visit Provider Orthopaedic Surgery
DX: Z47.1 Aftercare following joint replacement surgery (principal); Z96.651 Presence of right artificial knee joint
CPT/HCPCS: 73560; 73565

== ENCOUNTER 2020-08-10 13:18 | Emergency (ER) | payer OTHER, SELFPAY ==
[2020-08-10 14:17] VITALS: BP 157/98; PULSE 64; RESP 18; TEMP 36.9; O2SAT 98; BMI 29.9
[2020-08-10 14:54] LABS: MANUAL DIFF FLAG NO
[2020-08-10 15:00] LABS: Basophils Percent Auto 0.2 % (0-2); Hematocrit 40.7 % (42-52); Hemoglobin 14.3 g/dl (14.0-18.0); Imm Gran Abs Auto 0.01 X10*3/uL (0.00-0.03); Imm Gran Pct Auto 0.2 % (0.0-0.4); Lymphocytes Absolute Auto 1.6 X10*3/uL (1.2-4.9); Lymphocytes Percent Auto 26.6 % (20-40); Mean Corpuscular HGB Conc 35.1 g/dl (31.0-36.0); Mean Corpuscular Volume 85.5 fL (80-98); Mean Platelet Volume 8.7 fL (9.4-12.4); Monocytes Absolute Auto 0.4 X10*3/uL (0.1-1.2); Monocytes Percent Auto 7.1 % (2-11); Neutrophils Absolute Auto 3.9 X10*3/uL (2.0-8.3); Neutrophils Percent Auto 65.9 % (45-73); Platelet Count 247 X10*3/uL (160-400); Red Blood Count 4.76 X10*6/uL (4.60-5.80); Red Cell Distribution Width 12.2 % (11.0-16.0)
[2020-08-10 15:03] LABS: Glucose Urine UA NEG (NEG); Leukocyte Esterase Urine NEG (NEG); Nitrite Urine NEG (NEG); PH 7.5 (5.0-8.0); Specific Gravity - Urine 1.015 (1.005-1.025); Urine Blood NEG (NEG); Urine Ketones NEG (NEG); Urine Protein NEG (NEG-TRACE)
[2020-08-10 15:05] LABS: Appearance Urine CLEAR; Color Urine YELLOW
[2020-08-10 15:18] LABS: RBC Urine 0 /HPF (0); WBC Urine 0 /HPF (0-4)
[2020-08-10 15:30] LABS: Anion Gap 13 (12-20); Blood Urea Nitrogen 13 mg/dL (9-16); Calcium 10.1 mg/dL (8.4-10.2); Carbon Dioxide 28 mmol/L (22-29); Chloride 102 mmol/L (96-108); Creatinine Clr Calc Pharmacy 109.3; Estimated Glomerular Filt Rate > 60; Glucose Random 120 mg/dL (60-115); Potassium 3.9 mmol/L (3.3-5.1); Sodium 139 mmol/L (135-145)
[2020-08-10 15:35] LABS: Alanine Aminotransferase 31 U/L (0-40); Albumin Level 4.6 g/dL (3.5-5.0); Alkaline Phosphatase 81 U/L (39-117); Aspartate Amino Transferase 18 U/L (5-37); Bilirubin Direct 0.2 mg/dL (0.0-0.5); Bilirubin Total 0.3 mg/dL (0.0-1.0); Total Protein 7.9 g/dL (6.5-8.0)
[2020-08-10] MEDS: Dicyclomine HCl 10 MG CAPSULE 20 MG PO (18:32)
--- NOTE | 2020-08-10 18:40 | ED_ITS ---
HPI - General Adult General Chief complaint: General Medical Stated complaint: general medical Time Seen by Provider: 08/10/20 17:25 Source: patient Mode of arrival: ambulatory Limitations: no limitations History of Present Illness HPI narrative: 55-year-old male with past medical history of hepatitis, IVDA, hypertension presents with less than 2 days of GI complaints. States that he has Vague upper respiratory complaints, abdominal pain, nausea, and feels dehydrated. He does not report any chest pain or pressure, palpitations, shortness of breath, abdominal distention, dysuria, hematuria, diarrhea, const ipation, melena, hematochezia, and edema. Does not report any picnic foods, but states that his spouse has similar illness. Onset (ago): day(s) ( to) Location: abdomen Radiation: non-radiation Severity: mild Severity scale (1-10): 4 Quality: aching Pain Consistency: intermittent Relieving factors: rest Exacerbating factors: eating Associated symptoms: cough Treatments prior to arrival: none Related Data Home Medications Medication Instructions Recorded Confirmed lisinopril-hydrochlorothiazide 1 tab PO DAILY 11/18/19 11/18/19 Previous Rx's Medication Instructions Recorded acetaminophen 650 mg PO Q6H PRN 30 Days #240 tab 12/23/19 aspirin 325 mg PO BID 14 Days #28 tab 12/23/19 oxycodone 10 mg PO Q4H PRN 7 Days #42 tab 12/23/19 sennosides [Senna Lax] 17.2 mg PO BEDTIME PRN 30 Days #60 12/23/19 tab dicyclomine 20 mg PO TID PRN #20 tab 08/10/20 ondansetron HCl [Zofran] 4 mg PO Q8H PRN #20 tab 08/10/20 Allergies Allergy/AdvReac Type Severity Reaction Status Date / Time bee pollen [bee stings] Allergy Hives Verified 07/01/20 09:50 Review of Systems Review of Systems: Constitutional: No Weight loss, No Fever, No Chills, No Night Sweats, No Fatigue, No Malaise ENT/Mouth: No Hearing loss, No Ear Pain, No Nasal Congestion, No Sinus Pain, No Hoarseness, No sore throat, No Rhinorrhea, No Swallowing Difficulty Eyes: No Eye Pain, No Swelling, No Redness, No Foreign Body, No Discharge, No Vision Changes Cardiovascular: No Chest Pain, No SOB, No Dyspnea on Exertion, No Orthopnea, No Edema, No Palpitations Respiratory: positive Cough, No Sputum, No Wheezing, No Smoke Exposure, No D yspnea Gastrointestinal: Positive Nausea, no Vomiting, no Diarrhea, positive abdominal Pain, No Hematochezia, No Melena Genitourinary: no irregular bleeding, No Dysuria, No Urinary Frequency, No He maturia, No Urinary Incontinence, No Urgency, No Flank Pain, No Urinary Flow Changes, No Hesitancy Musculoskeletal: No joint pain, No Myalgias, No Joint Swelling Skin: No Skin Lesions, No rash Neuro: No Weakness, No Numbness, No Paresthesias, No Loss of Consciousness, No Dizziness, No Headache Psych: No Anxiety/Panic, No Depression, No SI/HI/AH/VH, No Social Issues Heme/Lymph: No Bruising, No Bleeding,No Lymphadenopathy Endocrine: No Polyuria, No Polydipsia, No Temperature Intolerance Yes all other systems are reviewed and are negative PMFSH Past Medical History Attestation statement: The following information was validated with the patient. Source: old records reviewed Medical History Hx MRSA infection Hx of concussion Hx of hepatitis C Hx of low back pain Hx of migraine headaches Hypertension Osteoarthritis Osteoarthritis of right knee Osteoarthritis, knee Surgical History H/O arthroscopy of left knee History of total right knee replacement Social History Social History Are you a primary floor care technician to a significant other at home: No Do you presently have visiting nurse or other home services: No Alcohol intake: never Second Hand Smoke Exposure: No Use of substances other than those prescribed or required for medical reasons: No Substance Use Type: Former Substance User Advance Directives: No Advance Directives Information Provided: Yes service: No Current occupational status: employed Physical Exam Vital Signs: Vital Signs: Last Vital Signs Temp 99.8 F 08/10/20 18:59 Pulse 62 08/10/20 18:59 Resp 20 08/10/20 18:59 BP 165/93 H 08/10/20 18:59 Pulse Ox 96 08/10/20 18:59 Body Mass Index 29.9 Appearance: Alert. Oriented X3. No acute distress. Eyes: Pupils equal, round and reactive to light. ENT: Pharynx normal. Neck: Normal inspection. Neck supple. CVS: Normal heart rate and rhythm. Pulses normal. Respiratory: No respiratory distress. Breath sounds normal. Abdomen: Soft and nontender. Skin: Skin warm and dry. Normal skin color. Normal skin turgor. Extremities: No lower extremity edema. Neuro: No motor deficit. No sensory deficit. Course Course Course Narrative: 55-year-old male presents with symptoms consistent with viral gastroenteritis. Denies fevers and chills, able to tolerate p.o. fluids. multiple attempts for IV start, patient does have a history of IVDA and is a difficult stick. Will plan to give Zofran p.o. and patient will attempt p.o. fluid resuscitation. Plan of care to discharge home. Patient does understand that if symptoms persist he should return for further evaluation. Patient verbalized understanding of and agrees to plan of care discharge home. Medical Decision Making Differential Diagnosis Differential Diagnosis: Viral gastroenteritis, food poisoning, URI Medical Records Medical records reviewed: Yes I reviewed the patient's medical records. Lab Data Lab results reviewed: Yes I reviewed the patient's lab results. Result diagrams: 08/10/20 14:47 08/10/20 14:47 Labs: Lab Results 08/10/20 08/10/20 08/10/20 Range/Units 14:40 14:47 14:47 WBC 6.0 (4.8-10.8) X10*3/uL RBC 4.76 D (4.60-5.80) X10*6/uL Hgb 14.3 D (14.0-18.0) g/dl Hct 40.7 L D (42-52) % MCV 85.5 (80-98) fL MCH 30.0 (27.0-33.0) pg MCHC 35.1 (31.0-36.0) g/dl RDW 12.2 (11.0-16.0) % Plt Count 247 (160-400) X10*3/uL MPV 8.7 L (9.4-12.4) fL Immature Gran % (Auto) 0.2 (0.0-0.4) % Neut % (Auto) 65.9 (45-73) % Lymph % (Auto) 26.6 (20-40) % Forrest % (Auto) 7.1 (2-11) % Eos % (Auto) 0.0 (0-4) % Baso % (Auto) 0.2 (0-2) % Lymph # (Auto) 1.6 (1.2-4.9) X10*3/uL Forrest # (Auto) 0.4 (0.1-1.2) X10*3/uL Eos # (Auto) 0.0 (0.0-0.4) X10*3/uL Baso # (Auto) 0.0 (0.0-0.2) X10*3/uL Abs Immat Gran (auto) 0.01 (0.00-0.03) X10*3/uL Absolute Neuts (auto) 3.9 (2.0-8.3) X10*3/uL Absolute Nucleated RBC 0.000 (0.0-0.012) X10*3/uL Nucleated RBC % (auto) 0.0 (0.0-0.2) /100WBC Sodium 139 (135-145) mmol/L Potassium 3.9 (3.3-5.1) mmol/L Chloride 102 (96-108) mmol/L Carbon Dioxide 28 (22-29) mmol/L Anion Gap 13 (12-20) BUN 13 (9-16) mg/dL Creatinine 0.76 (0.5-1.4) mg/dL Estim Creat Clear Calc 109.3 Estimated GFR > 60 Random Glucose 120 H (60-115) mg/dL Calcium 10.1 D (8.4-10.2) mg/dL Total Bilirubin (0.0-1.0) mg/dL Direct Bilirubin (0.0-0.5) mg/dL AST (5-37) U/L ALT (0-40) U/L Alkaline Phosphatase (39-117) U/L Total Protein (6.5-8.0) g/dL Albumin (3.5-5.0) g/dL Urine Color YELLOW Urine Appearance CLEAR Urine pH 7.5 (5.0-8.0) Ur Specific [facility] 1.015 (1.005-1.025) Urine Protein NEG (NEG-TRACE) MG/DL Urine Glucose (UA) NEG (NEG) MG/DL Urine Ketones NEG (NEG) MG/DL Urine Blood NEG (NEG) Urine Nitrite NEG (NEG) Ur Leukocyte Esterase NEG (NEG) Urine RBC 0 (0) /HPF Urine WBC 0 (0-4) /HPF Ur Squamous Epith Cells NONE /LPF Urine Bacteria NONE /LPF 08/10/20 Range/Units 14:47 WBC (4.8-10.8) X10*3/uL RBC (4.60-5.80) X10*6/uL Hgb (14.0-18.0) g/dl Hct (42-52) % MCV (80-98) fL MCH (27.0-33.0) pg MCHC (31.0-36.0) g/dl RDW (11.0-16.0) % Plt Count (160-400) X10*3/uL MPV (9.4-12.4) fL Immature Gran % (Auto) (0.0-0.4) % Neut % (Auto) (45-73) % Lymph % (Auto) (20-40) % Forrest % (Auto) (2-11) % Eos % (Auto) (0-4) % Baso % (Auto) (0-2) % Lymph # (Auto) (1.2-4.9) X10*3/uL Forrest # (Auto) (0.1-1.2) X10*3/uL Eos # (Auto) (0.0-0.4) X10*3/uL Baso # (Auto) (0.0-0.2) X10*3/uL Abs Immat Gran (auto) (0.00-0.03) X10*3/uL Absolute Neuts (auto) (2.0-8.3) X10*3/uL Absolute Nucleated RBC (0.0-0.012) X10*3/uL Nucleated RBC % (auto) (0.0-0.2) /100WBC Sodium (135-145) mmol/L Potassium (3.3-5.1) mmol/L Chloride (96-108) mmol/L Carbon Dioxide (22-29) mmol/L Anion Gap (12-20) BUN (9-16) mg/dL Creatinine (0.5-1.4) mg/dL Estim Creat Clear Calc Estimated GFR Random Glucose (60-115) mg/dL Calcium (8.4-10.2) mg/dL Total Bilirubin 0.3 (0.0-1.0) mg/dL Direct Bilirubin 0.2 (0.0-0.5) mg/dL AST 18 (5-37) U/L ALT 31 (0-40) U/L Alkaline Phosphatase 81 (39-117) U/L Total Protein 7.9 (6.5-8.0) g/dL Albumin 4.6 (3.5-5.0) g/dL Urine Color Urine Appearance Urine pH (5.0-8.0) Ur Specific [facility] (1.005-1.025) Urine Protein (NEG-TRACE) MG/DL Urine Glucose (UA) (NEG) MG/DL Urine Ketones (NEG) MG/DL Urine Blood (NEG) Urine Nitrite (NEG) Ur Leukocyte Esterase (NEG) Urine RBC (0) /HPF Urine WBC (0-4) /HPF Ur Squamous Epith Cells /LPF Urine Bacteria /LPF Discharge Plan Discharge Clinical Impression: Gastritis Qualifiers: Gastritis type: unspecified gastritis Chronicity: acute Gastritis bleeding: without bleeding Qualified Code(s): K29.00 - Acute gastritis without bleeding Patient Disposition: Home, Self-Care Instructions: Gastritis (ED) Additional Instructions: you were evaluated for symptoms consistent with a viral gastroenteritis. Please use Zofran as needed for nausea. Use Bentyl as needed for abdominal cram ping. Follow-up with primary care physician. Thank you for choosing this emergency department for evaluation. Please follow-up with primary care physician as needed. Return to the emergency dep artment for any new, concerning, or worsening symptoms. Prescriptions: New dicyclomine 20 mg tablet 20 mg PO TID PRN (Reason: cramping) Qty: 20 RF: 0 ondansetron HCl [Zofran] 4 mg tablet 4 mg PO Q8H PRN (Reason: nausea and vomiting) Qty: 20 RF: 0 No Action lisinopril-hydrochlorothiazide 20-12.5 mg tablet 1 tab PO DAILY RF: 0 acetaminophen 325 mg Tablet 650 mg PO Q6H PRN (Reason: Pain, Mild (Pain Scale 1-3)) 30 Days Qty: 240 RF: 0 aspirin 325 mg Tablet 325 mg PO BID 14 Days Qty: 28 RF: 0 oxycodone 10 mg tablet 10 mg PO Q4H PRN (Reason: Pain, Moderate (Pain Scale 4-6) 7 Days Qty: 42 RF: 0 sennosides [Senna Lax] 8.6 mg Tablet 17.2 mg PO BEDTIME PRN (Reason: Constipation) 30 Days Qty: 60 RF: 0 Stand Alone Forms: Work/School Release Interventions: ED Discharge Assessment Last Done: 08/10/20 19:26 Discharge Date/Time: 08/10/20 19:26
[2020-08-10 18:59] VITALS: BP 165/93; PULSE 62; RESP 20; TEMP 37.7; O2SAT 96
--- NOTE | 2020-08-10 19:16 | PC.NURSE ---
PT REFUSING IV PLACEMENT AFTER ATTEMPTS BY TWO RNS.
== END 2020-08-10 19:26 | disposition home or self-care (01) ==
PROVIDERS: Emergency Provider Emergency Medicine
DX: K29.00 Acute gastritis without bleeding (principal); I10 Essential (primary) hypertension; Z79.899 Other long term (current) drug therapy
CPT/HCPCS: 36415; 80048; 80076; 81001; 85025; 96360; 96361; 96374; 96375; 99284

== ENCOUNTER 2023-10-29 11:41 | Emergency (ER) | payer OTHER, SELFPAY ==
--- NOTE | ~2023-10-29 | XR_ITS ---
EXAMINATION: XR KNEE, LEFT CLINICAL INFORMATION: Severe pain COMPARISON: 07/01/2020. TECHNIQUE: Four views of the left knee. FINDINGS: Tricompartment spurring. Moderate suprapatellar effusion. Mild medial and lateral knee and patellofemoral narrowings. No fracture or dislocation. XR/XR knee LT 4V IMPRESSION: Moderate suprapatellar effusion. Degenerative type changes. No acute bony pathology. Electronically signed by: Mavis Muniz MD 10/29/2023 12:52 PM EDT
[2023-10-29 11:50] VITALS: PULSE 105; RESP 18; TEMP 36.8; O2SAT 100; BMI 28.5
--- NOTE | 2023-10-29 11:51 | ED.EXTPRO ---
HPI - Extremity Problem General Chief complaint: Extremity Injury, Lower Stated complaint: L knee pain Time Seen by Provider: 10/29/23 12:13 Source: patient Mode of arrival: ambulatory Limitations: no limitations History of Present Illness ED Provider: JOSH BERGERON PA-C HPI Narrative: 58 year old male with pmhx significant for severe OA s/p total right knee replacement in 2020 presents to the ED today for evaluation of left knee pain x weeks. Patient admits he was supposed to have left knee replaced in 2021 however did not follow up. He has been taking tylenol, tylenol arthritis, and motrin at home without relief. 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 The pain is making it difficult for him to work. Admits to having to miss work over the last 2 days because of this. He has an appointment with [facility] ortho on 11/11/23 however his pain is too severe. He is requesting medication to bridge him to his appointment. Denies any injury/ trauma/ fall. Denies fever/ chills, calf pain/ swelling. No recent travel or long car rides. Related Data Home Medications ?Medication ?Instructions ?Recorded ?Confirmed lisinopril 20 1 tab PO DAILY 11/18/19 11/18/19 mg-hydrochlorothiazide 12.5 mg tablet Previous Rx's ?Medication ?Instructions ?Recorded acetaminophen 325 mg tablet 650 mg (2 x 325 mg) PO Q6H PRN 12/23/19 Pain, Mild (Pain Scale 1-3) 30 days #240 tabs aspirin 325 mg tablet 325 mg PO BID 14 days #28 tabs 12/23/19 oxycodone 10 mg tablet 10 mg PO Q4H PRN Pain, Moderate 12/23/19 (Pain Scale 4-6 7 days #42 tabs sennosides 8.6 mg tablet (Senna 17.2 mg (2 x 8.6 mg) PO BEDTIME 12/23/19 Lax) PRN Constipation 30 days #60 tabs dicyclomine 20 mg tablet 20 mg PO TID PRN cramping #20 tabs 08/10/20 ondansetron HCl 4 mg tablet 4 mg PO Q8H PRN nausea and 08/10/20 (Zofran) vomiting #20 tabs tramadol 50 mg tablet 50 mg PO TID PRN pain (scale score 09/17/24 7-10) #10 tabs Allergies Allergy/AdvReac Type Severity Reaction Status Date / Time bee pollen [bee stings] Allergy Hives Verified 10/29/23 11:52 Review of Systems Review of Systems: Constitutional: No fever, chills, fatigue, night sweats, weight changes ENT/Mouth: No ear pain, hearing loss, nasal congestion, sinus pain, rhinorrhea, sore throat Eyes: No eye pain, swelling, redness, vision changes, discharge Cardio: No chest pain, palpitations, KRAMER, orthopnea, peripheral edema Pulm: No SOB, cough, sputum, wheezing, dyspnea, hemoptysis GI: No nausea, vomiting, hematemesis, abdominal pain, diarrhea, constipation, hematochezia, melena : No irregular bleeding, dysuria, frequency, urgency, hesitancy, hematuria, flank pain, urinary flow changes, urinary incontinence or retention MSK: No back pain, neck pain, joint pain, myalgias, +left knee pain Skin: No lesions, rashes Neuro: No weakness, numbness, paresthesias, LOC, dizziness, headache Psych: No anxiety/panic, depression, SI/HI, AH/VH All other systems reviewed and are negative. [facility] Past Medical History Attestation statement: The following information was validated with the patient. Source: old records reviewed and nursing notes reviewed Medical History Osteoarthritis of right knee Hx MRSA infection Osteoarthritis Hx of low back pain Hx of hepatitis C Hx of migraine headaches Hx of concussion Hypertension Osteoarthritis, knee Surgical History History of total right knee replacement H/O arthroscopy of left knee Social History Social History Are you a primary long term care social worker to a significant other at home: No Do you presently have visiting nurse or other home services: No Alcohol intake: never Comment: sleeping Second Hand Smoke Exposure: No Substance Use Type: Former Substance User Advance Directives: No service: No Current occupational status: employed Physical Exam Vital Signs: Vital Signs: Last Vital Signs Temp 98.3 F 10/29/23 11:50 Pulse 105 H 10/29/23 11:50 Resp 18 10/29/23 11:50 Pulse Ox 100 10/29/23 11:50 O2 Del Method Room Air 10/29/23 11:50 BMI result Body Mass Index 28.5 Slightly tachy to 105, vitals otherwise WNL General: Well appearing, in no acute distress. Skin: Warm, dry, intact. No rashes or lesions. Head: Normocephalic, atraumatic. Cardiac: Chest wall symmetric. RRR. No MRG. Lungs: Normal respiratory effort without accessory muscle use. CTA bilaterally. Back: No midline spinous or paraspinal tenderness. No step off deformity. Ext: + vertical well-healing scar noted to anterior aspect of right knee status post replacement. Left knee without noted swelling, ecchymosis, erythema or deformity. Diffusely tender to palpation without palpable deformity, fluctuance or crepitus. ROM intact to flexion/extension with some discomfort. 2+ popliteal, DP/PT pulse intact. no calf tenderness. Neuro: AOx3. Normal speech. NV intact distally. Ambulating with steady gait. Psych: Appropriate mood and affect. Responds appropriately to questions. Course Course Course Narrative: This is a Rapid Medical Examination (RME) performed by Kasey Gar PA-C in triage. Full HPI, ROS, assessment and treatment plan per primary provider in the Main ED. 58 yo male with history of osteoarthritis in both of his knees, status post Plan: Reevaluation(s) Reevaluation #1: 2917 -- xr left knee showing chronic degenerative changes with moderate suprapatellar effusion. waldemar wrap applied. will send tramadol to pharmacy for pain control. advised to continue follow up with [facility] ortho this month as he will likely require knee replacement. patient treated with a dose of oxycodone in ED today with improvement. Patient has remained stable throughout ED visit today. Discussed worrisome signs and symptoms and when to return to the ED. All questions answered at this time. Patient is agreeable with disposition and stable for discharge. Medications Administered Discontinued Medications Generic Name Dose Route Start Last Admin Trade Name Freq PRN Reason Stop Dose Admin Oxycodone HCl 5 mg 10/29/23 12:26 10/29/23 12:40 Oxycodone Hcl Immed Release 5 Mg Tablet PO 10/29/23 12:27 5 mg ONCE ONE Administration Medical Decision Making Medical Decision Making [facility] Narrative: 58 year old male with pmhx significant for severe OA s/p total right knee replacement in 2020 presents to the ED today for evaluation of left knee pain x weeks. Vital signs stable. He is nontoxic appearing and in NAD. On exam, there is a vertical well-healing scar noted to anterior aspect of right knee status post replacement. Left knee without noted swelling, ecchymosis, erythema or deformity. Diffusely tender to palpation without palpable deformity, fluctuance or crepitus. ROM intact to flexion/extension with some discomfort. 2+ popliteal, DP/PT pulse intact. no calf tenderness. Differential diagnosis includes osteoarthritis. Presentation not consistent with gout, pseudogout, fracture, dislocation, Landaverde's cyst, DVT, neurovascular compromise, compartment syndrome, threat to limb. Plan for x-ray, pain control and re-evaluation. Differential Diagnosis Differential Diagnoses: The differential diagnosis associated with the presentation includes As above Admission/Observation Not indicated Independent Interpretation I performed an independent interpretation of an: Plain X-Ray Interpretation: X-ray left knee without acute fracture, agree with radiologist's interpretation. Radiology Impression Discussion of test interpretation with radiology: I have reviewed the radiologist's reading. Radiologist Impression: EXAMINATION: XR KNEE, LEFT CLINICAL INFORMATION: Severe pain COMPARISON: 07/01/2020. TECHNIQUE: Four views of the left knee. FINDINGS: Tricompartment spurring. Moderate suprapatellar effusion. Mild medial and lateral knee and patellofemoral narrowings. No fracture or dislocation. XR/XR knee LT 4V IMPRESSION: Moderate suprapatellar effusion. Degenerative type changes. No acute bony pathology. Electronically signed by: Mavis Muniz MD 10/29/2023 12:52 PM EDT Independent Historian Clinical information obtained from an independent historian. History obtained from or confirmed by: Spouse External Record Review External record reviewed: Inpatient record Prescription Management I considered prescription management with: Pain Medication (tramadol) Social Determinants Patient?s care significantly limited by Social Determinants of Health including: Other Social Determinant of Health Critical Care Time Critical Care Time Critical Care Time: No Discharge Plan Discharge Clinical Impression: Degenerative arthritis of left knee, Effusion of left knee Patient Disposition: Home, Self-Care Instructions: Osteoarthritis (ED) Additional Instructions: You were evaluated in the ED today for left knee pain. Your xray shows degenerative changes consistent with arthritis. You have been provided with an WALDEMAR wrap for comfort. Rest, ice and elevate the knee to help with pain/ swelling. I recommend you take 600mg ibuprofen every 6 hours or Tylenol 650mg every 6 hours as needed for pain. If needed, you can alternate these medications so that you take one medication every 3 hours. For example, at noon take ibuprofen, then at 3pm take Tylenol, then at 6pm take ibuprofen. Tramadol is a controlled pain medication that has been sent to your pharmacy for you to take for break-through pain. Follow up with Ortho as scheduled. Return with new or worsening symptoms. In the case of an emergency call 911. Prescriptions: New tramadol 50 mg tablet 50 mg PO TID PRN (Reason: pain (scale score 7-10)) Qty: 10 0RF No Action lisinopril-hydrochlorothiazide 20-12.5 mg tablet 1 tab PO DAILY acetaminophen 325 mg Tablet 650 mg PO Q6H PRN (Reason: Pain, Mild (Pain Scale 1-3)) 30 Days Qty: 240 0RF aspirin 325 mg Tablet 325 mg PO BID 14 Days Qty: 28 0RF oxycodone 10 mg tablet 10 mg PO Q4H PRN (Reason: Pain, Moderate (Pain Scale 4-6) 7 Days Qty: 42 0RF sennosides [Senna Lax] 8.6 mg Tablet 17.2 mg PO BEDTIME PRN (Reason: Constipation) 30 Days Qty: 60 0RF dicyclomine 20 mg tablet 20 mg PO TID PRN (Reason: cramping) Qty: 20 0RF ondansetron HCl [Zofran] 4 mg tablet 4 mg PO Q8H PRN (Reason: nausea and vomiting) Qty: 20 0RF Referrals: [facility] Orthopedic Surgeons [Provider Group] Stand Alone Forms: Work/School Release Print Language: Syriac
[2023-10-29] MEDS: oxyCODONE HCl Immed Release 5 MG TABLET PO (12:40)
[2023-10-29 13:12] VITALS: BP 137/80; PULSE 80; RESP 16; TEMP 36.2; O2SAT 100
[2023-10-29 13:17] VITALS: BP 137/80; PULSE 80; RESP 16; TEMP 36.2; O2SAT 100
== END 2023-10-29 13:19 | disposition home or self-care (01) ==
PROVIDERS: Emergency Provider Emergency Medicine
DX: M17.12 Unilateral primary osteoarthritis, left knee (principal); M25.462 Effusion, left knee; M25.562 Pain in left knee
CPT/HCPCS: 73564; 99283

== ENCOUNTER 2023-11-11 13:53 | Outpatient (AMB) | payer OTHER, SELFPAY ==
[2023-11-11 13:56] VITALS: BMI 28.5
--- NOTE | 2023-11-11 13:56 | A.OFFVIS_ITS ---
Vital Signs 11/11/23 13:56 Height 5 ft 5 in Weight 171 lb BMI 28.5 Intake Visit Reasons: New Problem - Left Knee Pain Intake Note: Phil is a 58 year old male who presents today for a new problem visit with complaints of left knee pain. Patient reports difficulty bending, climbing, and walking. He is currently using a cane to aid with ambulation. Denies prior injuries or surgeries to the left knee. Patient is interested on a steroid injection today as well as discussing left TKA. Hx of Right TKA 12/22/2019. Allergies bee pollen [bee stings] Allergy (Verified 11/11/23 13:56) Hives HPI HPI New Problem - Left Knee Pain: Details: Phil is a 58 year old male who presents today for a new problem visit with complaints of left knee pain. Patient reports difficulty bending, climbing, and walking. He is currently using a cane to aid with ambulation. Denies prior injuries or surgeries to the left knee. Patient is interested on a steroid injection today as well as discussing left TKA. Hx of Right TKA 12/22/2019. He has had injections in the left knee and feels that his pain is decreasing the quality of his life. He can not engage in activities that he enjoys and would like to proceed forward with arthroplasty. [facility] Medical History Osteoarthritis of right knee Hx MRSA infection Osteoarthritis Hx of low back pain Hx of hepatitis C Hx of migraine headaches Hx of concussion Hypertension Osteoarthritis, knee Surgical History History of total right knee replacement H/O arthroscopy of left knee Social History Are you a primary early breastfeeding care specialist to a significant other at home: No Do you presently have visiting nurse or other home services: No Alcohol intake: never Comment: sleeping Second Hand Smoke Exposure: No Substance Use Type: Former Substance User service: No Current occupational status: employed Physical Exam Vital Signs: BMI result Body Mass Index 28.5 Extrem Other: Right knee with well-healed incision and excellent range of motion. Left knee with tenderness to palpation medial compartment and lateral retropatellar compartment. There is a mild effusion and he has an antalgic gait. Stable to varus and valgus stress with 5-125 degrees of motion. Results Reviewed Results Reviewed: I personally reviewed relevant radiographs. There is moderate tricompartmental osteoarthritis on the left Assessment & Plan Assessment & Plan (1) Degenerative arthritis of left knee: Code(s): M17.12 - Unilateral primary osteoarthritis, left knee Category: Medical Plan: This is a 58-year-old gentleman with left knee moderate tricompartmental osteoarthritis. He has failed injections, NSAIDs over an extended period of time as well as occasionally taking tramadol. He is active and healthy and limited only by the pain in his left knee. We discussed treatment options knee arthroplasty. I explained to her the procedure and the details and reviewed her x-rays with.I discussed the risks benefits and alternatives including but not limited to the risk of pain, infection, stiffness, need for further surgery as well as potential medical complications such as blood clots, pulmonary embolism and cardiac complications. He expressed understanding and we will proceed forward accordingly. Coding Level of Care Code Est Pt Level 4 (81773) Diagnoses Degenerative arthritis of left knee M17.12
== END 2023-11-11 14:34 | disposition home or self-care (01) ==
PROVIDERS: Visit Provider Orthopaedic Surgery
DX: M17.12 Unilateral primary osteoarthritis, left knee (principal)
CPT/HCPCS: 99214

== ENCOUNTER → 2023-11-11 13:53 | Outpatient (BNVA) | payer OTHER, SELFPAY | PROVIDERS: Visit Provider Orthopaedic Surgery ==

== ENCOUNTER 2023-12-16 | Outpatient (REF) | payer OTHER, SELFPAY ==
[2023-12-16 12:22] VITALS: BP 146/80; PULSE 65; RESP 18; O2SAT 98; BMI 30.4
--- NOTE | 2023-12-16 13:00 | HO.ANESPROP2 ---
HPI - Anesthesia Eval Consult details Narrative: 58yo M for Left Knee Replacement Total, pending reschedule per patient request Medically optimized per [facility] preop clinic No recent illness No CP/SOB with minimal activity r/t knee pain S/p Right knee 2020. Attempted spinal multiple times without success. [facility] Active Problems Active Problems: All Active Problems Status post right knee replacement (Acute) Past Medical History Medical History (Updated 12/16/23 @ 12:16 by Andria Fuentes RN) Obese Numbness Osteoarthritis of right knee Hx MRSA infection Osteoarthritis Hx of low back pain Hx of hepatitis C Hx of migraine headaches Hx of concussion Hypertension Family History Family history of problems with anesthesia: No Surgical History Surgical History History of total right knee replacement H/O arthroscopy of left knee History of Problems with Anesthesia: No Social History Social History Are you a primary physician primary care sports medicine to a significant other at home: No Do you presently have visiting nurse or other home services: No Alcohol intake: never Comment: sleeping Patient Tobacco Use Status: Never used Tobacco Second Hand Smoke Exposure: No Use of substances other than those prescribed or required for medical reasons: No Substance Use Type: Former Substance User Have you been hit, kicked, punched, or otherwise hurt by someone within the past year? If so, by whom?: No Are you DNR?: No Advance Directives: No Advance Directives Information Provided: No Advance Directives on File: No Recently lost weight without trying: No Eating poorly because of decreased appetite: Yes Nutrition Risks: No Nutritional Risk Poor oral hygiene: Yes (missing teeth) service: No Current occupational status: employed Meds Allergies Allergy/AdvReac Type Severity Reaction Status Date / Time bee pollen [bee stings] Allergy Hives Verified 01/08/24 10:00 Home Medications ?Medication ?Instructions ?Recorded ?Confirmed ?Last Taken ?Type lisinopril 20 1 tab PO DAILY 11/18/19 01/08/24 Unknown History mg-hydrochlorothiazide 12.5 mg tablet ibuprofen 800 mg tablet 800 mg PO TID 12/13/23 01/08/24 Unknown History Exam Height,Weight and Vital Signs: Height 5 ft 5 in Weight 83.007 kg Last Vital Signs Pulse 65 12/16/23 12:22 Resp 18 12/16/23 12:22 BP 146/80 H 12/16/23 12:22 Pulse Ox 98 12/16/23 12:22 O2 Del Method Room Air 12/16/23 12:22 Pertinent Lab Results Pertinent Lab Results: CBC and BMP 11/2023 from outside facility Narrative Narrative: EKG 11/2023 NSR @ 82 Nonspecific T wave abn Prolonged QT Airway Mallampati Class: II TM Dist: >3cm Neck ROM: Full Loose/Missing/Broken Teeth: Yes (missing throughout) Heart: RRR Lungs: CTAB Assessment and Plan Assessment Anesthesia Assessment: Anesthesia Plan Discussed and PAT Visit Final Anesthetic Review Family History of Problems with Anesthesia: No History of Problems with Anesthesia: No
[2023-12-16 15:18] LABS: MRSA Nasal PCR NEGATIVE (Negative); SA Nasal PCR NEGATIVE (Negative)
== END 2023-12-16 00:01 | disposition home or self-care (01) ==
LOC: HO.PAT
PROVIDERS: Physician Assistant; Visit Provider Orthopaedic Surgery
DX: Z01.818 Encounter for other preprocedural examination (principal); M17.12 Unilateral primary osteoarthritis, left knee
CPT/HCPCS: 86850; 86900; 86901; 87640; 87641

== ENCOUNTER → 2023-12-24 10:56 | Outpatient (BNVA) | payer OTHER, SELFPAY | PROVIDERS: PCP Family Medicine | DX: Z01.818 Encounter for other preprocedural examination (principal) ==

== ENCOUNTER 2024-01-08 09:40 | Outpatient (AMB) | payer OTHER, SELFPAY ==
--- NOTE | 2024-01-08 09:58 | MHC.OFFVIS ---
Vital Signs 01/08/24 10:01 Height 5 ft 5 in Weight 171 lb BMI 28.5 Intake Visit Reasons: Pre-Op: L TKA w/NE 01/14/24 Intake Note: Quoc a 58 year old male who presents today for a preoperative left TKA, DOS: 01/14/24. Pain management agreement reviewed and signed. Allergies bee pollen [bee stings] Allergy (Verified 01/08/24 10:00) Hives Medication List - Last Reconciled 01/08/24 by PASHA Washington-Jayden acetaminophen 650 mg (2 x 325 mg) PO Q6H PRN 30 days ibuprofen 800 mg PO TID lisinopril-hydrochlorothiazide 20-12.5 mg 1 tab PO DAILY naproxen (EC-Naprosyn) 500 mg PO BID PRN walker Folding Front wheeled walker HPI Comments Details: Mr Sue presents to the office today for preop visit. He is scheduled for left total knee arthroplasty with Dr. Pathak. He continues to have ongoing pain and difficulty with ambulation in the left knee, which is affecting his quality of life; therefore, he has elected to move forward with surgery. [facility] Medical History (Updated 12/16/23 @ 12:16 by Andria Fuentes RN) Obese Numbness Osteoarthritis of right knee Hx MRSA infection Osteoarthritis Hx of low back pain Hx of hepatitis C Hx of migraine headaches Hx of concussion Hypertension Surgical History History of total right knee replacement H/O arthroscopy of left knee Social History Are you a primary doggy daycare activities director to a significant other at home: No Do you presently have visiting nurse or other home services: No Alcohol intake: never Comment: sleeping Patient Tobacco Use Status: Never used Tobacco Second Hand Smoke Exposure: No Substance Use Type: Former Substance User service: No Current occupational status: employed Review of Systems Const All systems reviewed & are unremarkable except as noted in HPI and below Physical Exam Vital Signs: BMI result Body Mass Index 28.5 Const General: cooperative and no acute distress Orientation/consciousness: patient oriented x3 HEENT Head: Yes normal to inspection, Yes normocephalic and Yes atraumatic Eyes General: appearance normal, both eyes and all related structures Neck Neck: Yes normal visual inspection and Yes no lymphadenopathy Resp Effort & Inspection: normal respiratory effort and able to speak in complete sentences Cardio Rate: regular rate Peripheral pulses: Peripheral pulses 2+ throughout GI Inspection: Yes normal to inspection Palpation (GI): Soft to palpation Skin General skin exam: no rashes or lesions noted Neuro General: patient oriented x3 Extrem Other: Left knee: Skin intact. No open wound or abrasion. ROM 0-95 degrees. Calf supple, nontender. NVI. Psych Appearance: grossly normal Mental Status: mental status grossly normal Assessment & Plan Assessment & Plan (1) Degenerative arthritis of left knee: Code(s): M17.12 - Unilateral primary osteoarthritis, left knee Category: Medical Plan I discussed in detail the procedure and what to expect pre and post operatively. We discussed the risks, benefits and alternatives to the surgery as well as the rehabilitation course. The risks; which include, but are not limited to infection, bleeding, nerve injury, ongoing pain, swelling, and stiffness, perioperative risk of injury to bones and soft tissues, and blood clots. I?ve answered all questions and with their understanding they have consented to move forward with Left total knee arthroplasty with Dr. Pathak RT TKA Implants: allyssa triathalon 04/14/09cr/32a Orders: Orders PT Evaluation and Treatment Today Z96.652 - Presence of left artificial knee joint XR knee LT 3V Today M25.562 - Pain in left knee XR knee RT 1V Today M25.561 - Pain in right knee Patient Instructions: Scribed for Michelle Moyer PA-C, by Herber Delgado spanish medical interpreter, on 01/08/2024 at 10:00 AM EST.? I, Michelle Moyer PA-C, have personally reviewed and agree with the information entered by the scribe. Coding Level of Care Code Est Pt Level 3 (50070) Complex EM visit Add On G2211 Diagnoses Degenerative arthritis of left knee M17.12
[2024-01-08 10:01] VITALS: BMI 28.5
== END 2024-01-08 11:13 | disposition home or self-care (01) ==
PROVIDERS: PCP Family Medicine; Visit Provider Physician Assistant
DX: M17.12 Unilateral primary osteoarthritis, left knee (principal)
CPT/HCPCS: 99213

== ENCOUNTER 2024-01-08 11:09 | Outpatient (REF) | payer OTHER, SELFPAY ==
--- NOTE | ~2024-01-08 | XR_ITS ---
EXAMINATION: XR LEFT KNEE SERIES XR RIGHT KNEE SERIES CLINICAL INFORMATION: Pain in left knee. Pain in the right knee. COMPARISON: X-rays of the left knee October 2023. X-ray of both knees June 2020. TECHNIQUE: 3 views of the left knee including AP upright. Single AP upright view of the right knee. FINDINGS: LEFT KNEE: Patellofemoral Compartment: Marginal osteophytes indicative of mild osteoarthritis, likely unchanged. There is mild joint space narrowing of the medial compartment with marginal osteophytes indicative of mild osteoarthritis. Lateral Compartment: Unremarkable. Probable loose body projecting over the intercondylar notch on the AP projection. This fragment measures 11 mm. This is unchanged. Small joint effusion. RIGHT KNEE LIMITED: There is a total knee arthroplasty in place. The components are in the usual position and are unchanged. There is no periprosthetic fracture or surrounding abnormal lucency. The surrounding soft tissues are normal. XR/XR knee RT 1V IMPRESSION: LEFT KNEE: Mild osteoarthritis. Probable loose body, unchanged. Small joint effusion. RIGHT KNEE: Stable right total knee arthroplasty. Electronically signed by: Martin Begum MD 01/12/2024 02:15 PM ASHLEY ASKEW
--- NOTE | ~2024-01-08 | XR_ITS ---
EXAMINATION: XR LEFT KNEE SERIES XR RIGHT KNEE SERIES CLINICAL INFORMATION: Pain in left knee. Pain in the right knee. COMPARISON: X-rays of the left knee October 2023. X-ray of both knees June 2020. TECHNIQUE: 3 views of the left knee including AP upright. Single AP upright view of the right knee. FINDINGS: LEFT KNEE: Patellofemoral Compartment: Marginal osteophytes indicative of mild osteoarthritis, likely unchanged. There is mild joint space narrowing of the medial compartment with marginal osteophytes indicative of mild osteoarthritis. Lateral Compartment: Unremarkable. Probable loose body projecting over the intercondylar notch on the AP projection. This fragment measures 11 mm. This is unchanged. Small joint effusion. RIGHT KNEE LIMITED: There is a total knee arthroplasty in place. The components are in the usual position and are unchanged. There is no periprosthetic fracture or surrounding abnormal lucency. The surrounding soft tissues are normal. XR/XR knee LT 3V IMPRESSION: LEFT KNEE: Mild osteoarthritis. Probable loose body, unchanged. Small joint effusion. RIGHT KNEE: Stable right total knee arthroplasty. Electronically signed by: Martin Begum MD 01/12/2024 02:15 PM ASHLEY ASKEW
== END 2024-01-08 11:10 | disposition home or self-care (01) ==
LOC: HO.HOSX 11:09
PROVIDERS: Visit Provider Physician Assistant
DX: M25.562 Pain in left knee (principal); M25.561 Pain in right knee
CPT/HCPCS: 73560; 73562

== ENCOUNTER 2024-01-13 10:56 | Outpatient (REF) | payer OTHER, SELFPAY | END 2024-01-13 10:57 | disposition home or self-care (01) | LOC: HO.LAB 10:56 | PROVIDERS: Visit Provider Physician Assistant | DX: Z13.89 Encounter for screening for other disorder (principal) ==

== ENCOUNTER 2024-08-31 17:50 | Emergency (ER) | payer OTHER, SELFPAY ==
[2024-08-31 18:01] VITALS: BP 190/126; PULSE 58; O2SAT 100
--- NOTE | 2024-08-31 18:01 | ECG_ITS ---
Test Reason : OD Blood Pressure : */* mmHG Vent. Rate : 59 BPM Atrial Rate : 59 BPM P-R Int : 178 ms QRS Dur : 92 ms QT Int : 448 ms P-R-T Axes : 71 71 -20 degrees QTcB Int : 443 ms Sinus bradycardia Abnormal QRS-T angle, consider primary T wave abnormality Abnormal ECG When compared with ECG of 10-Nov-2019 12:07, No significant change was found Referred By: Generic ED Physician Electronically Signed By: Lanre Handley
--- NOTE | 2024-08-31 18:26 | ED.OVERDOSE ---
HPI - Overdose General Chief Complaint: Altered Mental Status Stated Complaint: od 8mg narcan given Time Seen by Provider: 08/31/24 18:06 Source: family, EMS and old records reviewed Mode of arrival: EMS Limitations: other History of Present Illness ED Provider: JOSE MANUEL HPI Narrative: 59 yo male with PMH of HTN and opiate use disorder but had remote history - he has been using again due to loss of job. 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 Came inside and told her he didn't feel well. He was dizzy. He then proceeded to become unresponsive and EMS arrival given 8mg narcan now awake and agitated but not making sense. He cannot provide a history. EMS noted patient had pinpoint pupils on arrival and was apneic. told me he has been using again due to job loss. MD complaint: accidental overdose Onset (ago): hour(s) ([employer]) Timing confirmed by: family member Context: Intentional Overdose: work problems Treatments Prior to Arrival: narcan (8mg) Related Data Home Medications ?Medication ?Instructions ?Recorded ?Confirmed lisinopril 20 1 tab PO DAILY 11/18/19 01/08/24 mg-hydrochlorothiazide 12.5 mg tablet ibuprofen 800 mg tablet 800 mg PO TID 12/13/23 01/08/24 Previous Rx's ?Medication ?Instructions ?Recorded acetaminophen 325 mg tablet 650 mg (2 x 325 mg) PO Q6H PRN 12/23/19 Pain, Mild (Pain Scale 1-3) 30 days #240 tabs naproxen 500 mg tablet,delayed 500 mg PO BID PRN pain #60 tabs 11/12/23 release (EC-Naprosyn) walker #1 ea 12/16/23 Allergies Allergy/AdvReac Type Severity Reaction Status Date / Time bee pollen (bee stings) Allergy Hives Verified 08/31/24 18:45 Review of Systems Review of Systems: ROS unable to be obtained due to altered mental status PMFSH Past Medical History Attestation statement: The following information was validated with the patient. Source: old records reviewed Medical History Obese Numbness Osteoarthritis of right knee Hx MRSA infection Osteoarthritis Hx of low back pain Hx of hepatitis C Hx of migraine headaches Hx of concussion Hypertension Surgical History History of total right knee replacement H/O arthroscopy of left knee Social History Social History Are you a primary customer care assistant to a significant other at home: No Do you presently have visiting nurse or other home services: No Alcohol intake: never Comment: sleeping Patient Tobacco Use Status: Never used Tobacco Smoked in Last 30 Days: No Second Hand Smoke Exposure: No Use of substances other than those prescribed or required for medical reasons: Yes Substance Use Type: Heroin Advance Directives: No Advance Directives Information Provided: No service: No Current occupational status: employed Physical Exam Vital Signs: Vital Signs: Last Vital Signs Temp 98.4 F 08/31/24 21:53 Pulse 61 08/31/24 21:53 Resp 17 08/31/24 21:53 BP 153/90 H 08/31/24 21:53 Pulse Ox 97 08/31/24 21:53 O2 Del Method Room Air 08/31/24 21:53 BMI result Body Mass Index 30.5 Appearance: Somnolent but woken with tactile stimuli, confused, mumbling mild acute distress. Eyes: Pupils equal, round and reactive to light. ENT: Pharynx normal. atraumatic Neck: Normal inspection. Neck supple. CVS: Normal heart rate and rhythm. Pulses normal. Respiratory: No respiratory distress. Breath sounds normal. Abdomen: Soft and nontender. Skin: Skin warm and dry. Normal skin color. Normal skin turgor. Extremities: No lower extremity edema. Neuro: confused, mumbling, moves all extremities but difficult to follow exam, agitated, trying to get up. Course Course Course Narrative: more calm after valium Reevaluation(s) Reevaluation #1: signed out to Dr. Robert pending work up Medications Administered Discontinued Medications Generic Name Dose Route Start Last Admin Trade Name Freq PRN Reason Stop Dose Admin Diazepam 2.5 mg 08/31/24 18:40 08/31/24 19:35 Diazepam 10 Mg/2 Ml Cartridge IVPUSH 08/31/24 18:41 2.5 mg STAT STA Administration Lactated Ringer's 1,000 mls @ 999 mls/hr 08/31/24 18:40 08/31/24 21:08 Lr IV 08/31/24 19:40 Infused .Q1H1M ONE Infusion Naloxone HCl 8 mg 08/31/24 20:44 08/31/24 21:53 Naloxone Hcl Nasal Take Home 4 Mg Harwood NOSTRILALT 08/31/24 20:45 8 mg ONCE ONE Administration Medical Decision Making Medical Decision Making [facility] Narrative: 59 yo male with PMH of HTN and opiate use disorder here with c/o dizziness then had episode of unresponsiveness no head trauma or seizure activity but he is mumbling not making sense, moving all extremities and agitated at this time will obtain labs, CT head for ICH, valium for agitation. This could be withdrawal related if he was taking medetomidine in his heroin, lyte abnormality, ICH, toxic encephalopathy 09/01/24 0139 Samira Robert MD Patient is awake, alert and oriented x3, ambulatory with normal steady gait. Patient admits that he used heroin. Patient declined getting a CT scan. Patient states that he knows exactly what happened, admits that this was secondary to the heroin. Since patient is alert and oriented x3 and coherent, patient refusing CT scan, patient states that he feels well to go home Differential Diagnosis Differential Diagnoses: The differential diagnosis associated with the presentation includes withdrawal if medetomidine in his heroin, lyte abnormality, ICH, toxic encephalopathy Admission/Observation Consideration of admission/observation: Escalation of care including admission/observation considered Lab Data [facility] Lab Attestation statement: I reviewed the patient's lab results. 08/31/24 19:20 08/31/24 19:20 Labs: Lab Results 08/31/24 Range/Units 19:20 WBC 9.2 (4.8-10.8) X10*3/uL RBC 4.87 (4.60-5.80) X10*6/uL Hgb 14.9 (14.0-18.0) g/dl Hct 41.0 L (42.0-52.0) % MCV 84.2 (80.0-98.0) fL MCH 30.6 (27.0-33.0) pg MCHC 36.3 H (31.0-36.0) g/dl RDW 11.9 (11.0-16.0) % Plt Count 265 (160-400) X10*3/uL MPV 8.7 L (9.4-12.4) fL Immature Gran % (Auto) 0.2 (0.0-0.4) % Neut % (Auto) 74.8 H (45-73) % Lymph % (Auto) 19.1 L (20-40) % [place] % (Auto) 5.5 (2-11) % Eos % (Auto) 0.1 (0-4) % Baso % (Auto) 0.3 (0-2) % Lymph # (Auto) 1.8 (1.2-4.9) X10*3/uL [place] # (Auto) 0.5 (0.1-1.2) X10*3/uL Eos # (Auto) 0.0 (0.0-0.4) X10*3/uL Baso # (Auto) 0.0 (0.0-0.2) X10*3/uL Abs Immat Gran (auto) 0.02 (0.00-0.03) X10*3/uL Absolute Neuts (auto) 6.9 (2.0-8.3) x10*3/uL Absolute Nucleated RBC 0.000 (0.0-0.012) X10*3/uL Nucleated RBC % (auto) 0.0 (0.0-0.2) /100WBC Sodium 143 (135-145) mmol/L Potassium 3.7 (3.3-5.1) mmol/L Chloride 106 (96-108) mmol/L Carbon Dioxide 23 (22-29) mmol/L Anion Gap 18 (12-20) BUN 19 H (9-16) mg/dL Creatinine 0.74 (0.5-1.4) mg/dL Estim Creat Clear Calc 134.4 Estimated GFR > 60 Random Glucose 136 H (60-115) mg/dL Calcium 10.4 H (8.4-10.2) mg/dL Magnesium 2.3 (1.6-2.6) mg/dL Total Bilirubin 0.6 (0.0-1.0) mg/dL Direct Bilirubin 0.2 (0.0-0.5) mg/dL AST 25 (5-37) U/L ALT 22 (0-40) U/L Alkaline Phosphatase 69 (39-117) U/L Total Creatine Kinase 166 (38-174) U/L Total Protein 8.6 H (6.5-8.0) g/dL Albumin 5.0 (3.5-5.0) g/dL Lipase 27 (8-78) U/L Ethyl Alcohol < 10 mg/dL Influenza Type A (PCR) NEGATIVE (Negative) Influenza Type B (PCR) NEGATIVE (Negative) RSV RNA Qual (PCR) NEGATIVE (Negative) SARS-CoV-2 RNA (RT-PCR) NEGATIVE (Negative) Independent Interpretation I performed an independent interpretation of an: EKG and CT Scan Interpretation: Rate: 59 Rhythm: sinus bradycardia [place]: normal Normal P waves. Normal [place]. Normal QRS complex. ST T wave : normal no SYMONE qTC: 443 prior studies: no acute ischemia The study has been interpreted contemporaneously by me. . Radiology Impression Discussion of test interpretation with radiology: I have reviewed the radiologist's reading. Independent Historian Clinical information obtained from an independent historian. History obtained from or confirmed by: Spouse External Record Review External record reviewed: Outpatient record Critical Care Time Critical Care Time Critical Care Time: Yes Total Critical Care Time: 35 Attestation: I have personally provided critical care time. Time includes review of lab data, radiology results, discussion with consultants, and monitoring for potential decompensation. Intervention performed as documented. Discharge Plan Discharge Clinical Impression: Overdose Patient Disposition: Home, Self-Care Instructions: Adult Overdose (ED) Additional Instructions: Overdose You were seen in our Emergency Department for an overdose today. You received narcan in order to reverse the effects of overdose. Narcan only lasts about 45 min to 1 hour in the system. You may have been given narcan to take home with you today, please keep it near you if you are going to use again, so others can use it if needed.? The number one risk for fatal overdose is using alone? [employer] is a 03/09 hotline where you can be on the phone with someone while you use, and they can call for help if they suspect an overdose: [phone] Things to look out for when you leave include severe vomiting or diarrhea, headaches, muscle cramps, fever, coughing, chest pain, or if you feel so short of breath you cannot walk to the bathroom. Please seek care and return any time for worsening symptoms.? You may have been provided with safer injection?items, please take time to take care of YOU and your health. Use new supplies whenever possible to lessen the chances of infections and other illnesses.? If you need more supplies, please go [facility],? [address] [place], [place] you can call or text to coordinate delivery of safer supplies. If you decide you want to stop or cut down on how much you?re using, please call the numbers on the list provided to you or you can come to our outpatient Addiction Treatment office [facility] [[email or web address]] (M-F 9am-5p) [address] [place] [address], [address] [place], [place]. [phone] Prescriptions: No Action naproxen [EC-Naprosyn] 500 mg tablet,delayed release (DR/EC) 500 mg PO BID PRN (Reason: pain) Qty: 60 1RF (DME) dariusz [place] See Rx Instructions .MEDSUPPLY Qty: 1 0RF Rx Instructions: Merissa arzola lisinopril-hydrochlorothiazide 20-12.5 mg tablet 1 tab PO DAILY acetaminophen 325 mg Tablet 650 mg PO Q6H PRN (Reason: Pain, Mild (Pain Scale 1-3)) 30 Days Qty: 240 0RF ibuprofen 800 mg Tablet 800 mg PO TID Print Language: Danish
--- NOTE | 2024-08-31 18:28 | MHC.EDTECH ---
Attempted to obtain EKG upon EMS arrival. Pt was uncooperative, unable to sit still, and lay on his back. Per provider, EKG is not needed at this time.
[2024-08-31 18:39] VITALS: BP 161/98; PULSE 57; RESP 14; TEMP 36.6; O2SAT 100; BMI 30.5
--- NOTE | 2024-08-31 18:47 | PC.NURSE ---
student union consultant took EMS report for this RN. Pt was found at home unresponsive by PD. Pt reporting at 5pm he reported feeling dizzy and tired. Pt reports that he was acting fine this morning prior to 5pm. Denies medial problems besides HTN of which he takes HCTZ. Pt reporting old history of drug use but denies recent use. Pt is agitated and restless in ED. MD aware and reported to hold on doing EKG at this time. Pt to moved to a monitored room as soon as one is available.
[2024-08-31 19:23] LABS: MANUAL DIFF FLAG NO
[2024-08-31 19:25] LABS: Hematocrit 41.0 % (42.0-52.0); Hemoglobin 14.9 g/dl (14.0-18.0); Imm Gran Abs Auto 0.02 X10*3/uL (0.00-0.03); Imm Gran Pct Auto 0.2 % (0.0-0.4); Lymphocytes Absolute Auto 1.8 X10*3/uL (1.2-4.9); Mean Corpuscular HGB Conc 36.3 g/dl (31.0-36.0); Mean Corpuscular Hemoglobin 30.6 pg (27.0-33.0); Mean Corpuscular Volume 84.2 fL (80.0-98.0); NRBC Abs Auto 0.000 X10*3/uL (0.0-0.012); NRBC Pct Auto 0.0 /100WBC (0.0-0.2); Platelet Count 265 X10*3/uL (160-400); Red Blood Count 4.87 X10*6/uL (4.60-5.80); White Blood Count 9.2 X10*3/uL (4.8-10.8)
[2024-08-31] MEDS: Lactated Ringers 1,000 ML 999 ML IV (19:33)
[2024-08-31] MEDS: diazePAM 10 MG/2 ML CARTRIDGE 2.5 MG IVPUSH (19:35)
[2024-08-31 19:39] VITALS: BP 151/89; PULSE 63; RESP 12; O2SAT 99
[2024-08-31 19:40] LABS: Alanine Aminotransferase 22 U/L (0-40); Albumin Level 5.0 g/dL (3.5-5.0); Alkaline Phosphatase 69 U/L (39-117); Anion Gap 18 (12-20); Aspartate Amino Transferase 25 U/L (5-37); Blood Urea Nitrogen 19 mg/dL (9-16); Calcium 10.4 mg/dL (8.4-10.2); Carbon Dioxide 23 mmol/L (22-29); Chloride 106 mmol/L (96-108); Creatinine Clr Calc Pharmacy 134.4; Estimated Glomerular Filt Rate > 60; Lipase 27 U/L (8-78); Magnesium 2.3 mg/dL (1.6-2.6); Potassium 3.7 mmol/L (3.3-5.1); Sodium 143 mmol/L (135-145); Total Protein 8.6 g/dL (6.5-8.0)
[2024-08-31 20:16] LABS: Resp Syncy Virus RNA Qual PCR NEGATIVE (Negative); SARS COV2 PCR INHOUSE NEGATIVE (Negative)
[2024-08-31 21:07] VITALS: BP 145/86; PULSE 57; RESP 12; O2SAT 100
[2024-08-31 21:53] VITALS: BP 153/90; PULSE 61; RESP 17; TEMP 36.9; O2SAT 97
[2024-08-31] MEDS: Naloxone HCl Nasal TAKE HOME 4 MG SPRAY 8 MG NOSTRILALT (21:53)
[2024-09-01 01:50] VITALS: BP 115/72; PULSE 55; RESP 16; TEMP 37.1; O2SAT 98
== END 2024-09-01 01:50 | disposition home or self-care (01) ==
PROVIDERS: Emergency Medicine; Emergency Provider Emergency Medicine
DX: T40.1X1A Poisoning by heroin, accidental (unintentional), initial encounter (principal); R40.4 Transient alteration of awareness; F19.10 Other psychoactive substance abuse, uncomplicated; Y92.008 Other place in unspecified non-institutional (private) residence as the place of occurrence of the external cause; R42 Dizziness and giddiness; I10 Essential (primary) hypertension; Z03.818 Encounter for observation for suspected exposure to other biological agents ruled out
CPT/HCPCS: 36415; 80048; 80076; 80307; 82550; 83690; 83735; 85025; 87637; 93005; 96361; 96374; 99284; J3360; J7120

== ENCOUNTER → 2024-08-31 18:01 | Outpatient (BNV) | payer OTHER, SELFPAY | PROVIDERS: Emergency Provider Emergency Medicine; Visit Provider Internal Medicine Cardiovascular Disease | DX: R00.1 Bradycardia, unspecified (principal) | CPT/HCPCS: 93010 ==